=== PATIENT | female | born 1935 | race Caucasian/White ===

== ENCOUNTER 2017-06-26 16:48 | Inpatient (IN) | payer MEDICARE, MEDICAID ==
[~2017-06-26] VITALS: Ht 157.5 cm; Wt 55.0 kg
[2017-06-26 17:08] VITALS: BP 123/59; PULSE 100; RESP 24; TEMP 100.9; O2SAT 95
[2017-06-26] MEDS ORDERED: SODIUM CHLOR 0.9% 1000 ML INJ 800 ML IV ONE (17:17)
[2017-06-26] MEDS ORDERED: cefTRIAXone INJ 2,000 MG in SODIUM CHLORIDE 0.9% INJ 100 ML IV STA (17:17)
[2017-06-26] MEDS ORDERED: SODIUM CHLOR 0.9% 1000 ML INJ 1,000 ML IV ONE (17:17)
[2017-06-26] MEDS ORDERED: AZITHROMYCIN INJ 500 MG in SODIUM CHLOR 0.9% 250 ML INJ 250 ML IV STA (17:17)
[2017-06-26] MEDS ORDERED: ERYTHROMYCIN 0.5% OPTH OINT 3.5 GM TUBO EACH EYE ONE (17:30)
[2017-06-26] MEDS ORDERED: ACETAMINOPHEN 325 MG TAB PO ONE (17:30)
--- NOTE | 2017-06-26 17:55 | RADRPT ---
EXAM DATE/TIME: 06/26/2017 17:39 [facility] COMPARISON: No previous studies available for comparison. INDICATIONS : Fever. Congestion. MEDICAL HISTORY : None. SURGICAL HISTORY : None. ENCOUNTER: Initial ACUITY: 3 days PAIN SCORE: 6/10 LOCATION: Bilateral chest FINDINGS: A single view of the chest demonstrates patent changes in the right middle lobe. Otherwise, the rest of the lung costa are grossly clear. There some mild chronic interstitial changes bilaterally. The h eart size is upper limits of normal. There are no pleural effusions or pulmonary edema. The bony stru ctures are grossly intact. There are no prior studies for comparison.. CONCLUSION: Focal parenchymal changes in the right middle lobe suggestive of pneumonia. Evert Morgan MD on June 26, 2017 at 17:52 Board Certified Radiologist. This report was verified electronically.
[2017-06-26 18:01] LABS: AUTOMATED NEUTROPHIL # 16.6 TH/MM3 (1.8-7.7); BASOPHIL % 0.1 % (0.0-2.0); EOSINOPHIL % 0.1 % (0.0-4.0); HEMATOCRIT 38.8 % (35.0-46.0); HEMO FLAGS DIFF FINAL; LYMPH % 5.7 % (9.0-44.0); LYMPHOCYTE # 1.1 TH/MM3 (1.0-4.8); MEAN CELL VOLUME 89.8 FL (80.0-100.0); MEAN CORPUSCULAR HGB CONC 34.5 % (32.0-36.0); MONO % 6.3 % (0.0-8.0); NEUT % 87.8 % (16.0-70.0); PLATELET COUNT 367 TH/MM3 (150-450); RED BLOOD COUNT 4.31 MIL/MM3 (4.00-5.30); WHITE BLOOD COUNT 18.9 TH/MM3 (4.0-11.0)
[2017-06-26] MEDS ORDERED: FURO1TAB62 PO (18:11)
[2017-06-26] MEDS ORDERED: GLIP10TA6 PO (18:11)
[2017-06-26] MEDS ORDERED: NAME10TA PO (18:11)
[2017-06-26] MEDS ORDERED: D31000CA3 PO (18:11)
[2017-06-26] MEDS ORDERED: METF1000 PO (18:11)
[2017-06-26] MEDS ORDERED: IPRASOL NEB (18:11)
[2017-06-26] MEDS ORDERED: TYLE325T PO (18:11)
[2017-06-26] MEDS ORDERED: LORA-392 PO (18:11)
[2017-06-26] MEDS ORDERED: NIAC250T3 PO (18:11)
[2017-06-26] MEDS ORDERED: ARIC10TA9 PO (18:11)
[2017-06-26] MEDS ORDERED: ZOCO20TA PO (18:11)
[2017-06-26] MEDS ORDERED: PAXI40TA9 PO (18:11)
[2017-06-26] MEDS ORDERED: CLAR500T PO (18:11)
[2017-06-26 18:46] LABS: ANION GAP 11 MEQ/L (5-15); AST (GOT) 31 U/L (15-37); BICARBONATE 24.3 MEQ/L (21.0-32.0); BLOOD UREA NITROGEN 26 MG/DL (7-18); CHLORIDE 105 MEQ/L (98-107); GLOMERULAR FILTRATION RATE 42 ML/MIN (>89); POTASSIUM 3.8 MEQ/L (3.5-5.1); SODIUM (NA) 140 MEQ/L (136-145)
[2017-06-26 18:47] LABS: ALT (GPT) 19 U/L (10-53)
[2017-06-26 18:49] LABS: ALKALINE PHOSPHATASE 95 U/L (45-117); TOTAL BILIRUBIN ADULT 0.5 MG/DL (0.2-1.0)
--- NOTE | 2017-06-26 18:54 | PD ---
HPI Chief Complaint: Fall Time Seen by Provider: 17:03 Travel History International Travel<30 days: No Contact w/Intl Traveler<30days: No Traveled to known affect area: No History of Present Illness HPI Patient's 81-year-old female who arrives by EMS after fall today. Pt was found on the floor. She was found to be tachypneic and to have had a fever of 102.7. Pt reported to be on abx. Coarse breath sounds were observed per EMS. EMS reports the patient was declining in her [facility] over the past two days, missing meals. In the ER the patient denies pain. She denies shortness of breath and fever. PFSH Past Medical History Asthma: Yes Anxiety: Yes Depression: Yes High Cholesterol: Yes Dementia: Yes Diabetes: Yes Patient Takes Glucophage: Yes Triglycerides - High: Yes Influenza Vaccination: Yes Past Surgical History Surgical History: Unable to Obtain Social History Alcohol Use: No Tobacco Use: No Substance Use: No Allergies-Medications (Allergen,Severity, Reaction): Coded Allergies: atorvastatin (Verified Allergy, Unknown, 06/26/17) Reported Meds & Prescriptions Reported Meds & Active Scripts Active Reported Metformin (Metformin HCl) 1,000 Mg Tab 1,000 Mg PO BID Lasix (Furosemide) 20 Mg Tab 20 Mg PO DAILY 1 Days Namenda (Memantine) 10 Mg Tab 10 Mg PO BID Glipizide 10 Mg Tab 10 Mg PO BID Take 30 minutes before a meal Duoneb (Ipratropium-Albuterol Neb) 0.5-2.5 Mg/3 Ml Neb 3 Ml NEB Q6HR 3 Days Clarithromycin 500 Mg Tab 500 Mg PO Q12HR 3 Days Ativan (Lorazepam) 0.5 Mg Tab 0.25 Mg PO DAILY Aricept (Donepezil HCl) 10 Mg Tablet 10 Mg PO HS Plain Niacin (Niacin) 250 Mg Tablet 250 Mg PO DAILY Paxil (Paroxetine HCl) 40 Mg Tablet 40 Mg PO DAILY Tylenol (Acetaminophen) 325 Mg Tab 650 Mg PO Q4H PRN Zocor (Simvastatin) 20 Mg Tab 20 Mg PO DAILY Vitamin D-3 (Cholecalciferol) 1,000 Unit Cap 1,000 Units PO DAILY Tylenol (Acetaminophen) 325 Mg Tab 325 Mg PO Q4H PRN Review of Systems Except as stated in HPI: all other systems reviewed are Neg General / Constitutional: Positive: Fever Respiratory: Positive: Cough Physical Exam Narrative GENERAL: 81-year-old female speaking in sentences mild to moderate distress SKIN: Warm and dry. HEAD: Normocephalic. No obvious traumatic injury. EYES: Pupils equal and round. No scleral icterus. No injection or drainage. ENT: No nasal bleeding or discharge. Mucous membranes pink and moist. NECK: Trachea midline. No JVD. CARDIOVASCULAR:hr 90S. REGULAR. RESPIRATORY: course breath sounds bilaterally GASTROINTESTINAL: Abdomen soft, non-tender, nondistended. Hepatic and splenic margins not palpable. MUSCULOSKELETAL: Extremities without clubbing, cyanosis, or edema. No obvious deformities. NEUROLOGICAL: Awake and alert. No obvious cranial nerve deficits. Motor grossly within normal limits. Five out of 5 muscle strength in the arms and legs. Normal speech. PSYCHIATRIC: Appropriate mood and affect; insight and judgment normal. Data Data Last Documented VS Vital Signs Date Time Temp Pulse Resp B/P (MAP) Pulse Ox O2 Delivery O2 Flow Rate FiO2 06/26/17 19:27 94 18 114/57 (76) 93 Room Air 06/26/17 18:47 2.00 06/26/17 17:08 100.9 VS reviewed Orders Orders Sepsis Workup Initiated (06/26/17 ) Complete Blood Count With Diff (06/26/17 17:17) Comprehensive Metabolic Panel (06/26/17 17:17) Lactic Acid Sepsis Protocol (06/26/17 17:17) Urinalysis - C+S If Indicated (06/26/17 17:17) Blood Culture (06/26/17 17:17) Chest, Single Ap (06/26/17 17:17) Blood Glucose (06/26/17 17:17) Ecg Monitoring (06/26/17 17:17) Iv Access Insert/Monitor (06/26/17 17:17) Oximetry (06/26/17 17:17) Oxygen Administration (06/26/17 17:17) Acetaminophen (Tylenol) (06/26/17 17:30) Ceftriaxone Inj (Rocephin Inj) (06/26/17 17:17) Azithromycin Inj (Zithromax Inj) (06/26/17 17:17) Sodium Chlor 0.9% 1000 Ml Inj (Ns 1000 M (06/26/17 17:17) Sodium Chlor 0.9% 1000 Ml Inj (Ns 1000 M (06/26/17 17:17) Erythromycin 0.5% Opth Oint (Ilotycin 0. (06/26/17 17:30) Admit To Inpatient (06/26/17 ) Vital Signs (Adult) Q4H (06/26/17 19:16) Activity Oob With Assistance (06/26/17 19:16) Bedside Glucose DARREN.CSUGAR (06/26/17 19:16) Diet Heart Healthy (06/27/17 Breakfast) Sodium Chloride 0.9% Flush (Ns Flush) (06/26/17 19:30) Sodium Chloride 0.9% Flush (Ns Flush) (06/26/17 21:00) Acetaminophen (Tylenol) (06/26/17 19:30) Ondansetron Inj (Zofran Inj) (06/26/17 19:30) Basic Metabolic Panel (Bmp) (06/27/17 06:00) Complete Blood Count With Diff (06/27/17 06:00) Resp Oxygen Titus C Titrat 1-4 L (06/26/17 ) Case Management Consult (06/26/17 19:16) Heparin Inj (Heparin Inj) (06/26/17 21:00) Naloxone Inj (Narcan Inj) (06/26/17 19:30) Docusate Sodium-Senna (More-Colace) (06/26/17 21:00) Magnesium Hydroxide Liq (Milk Of Magnesi (06/26/17 19:30) Sennosides (Senokot) (06/26/17 19:30) Bisacodyl Supp (Dulcolax Supp) (06/26/17 19:30) Lactulose Liq (Lactulose Liq) (06/26/17 19:30) Inpatient Certification (06/26/17 ) Furosemide (Lasix) (06/27/17 09:00) Lorazepam (Ativan) (06/27/17 09:00) Memantine (Namenda) (06/26/17 21:00) Donepezil (Aricept) (06/26/17 21:00) Niacin Sr (Slo-Niacin) (06/27/17 09:00) Paroxetine (Paxil) (06/27/17 09:00) Pravastatin (Pravachol) (06/27/17 09:00) Albuterol-Ipratropium Neb (Duoneb Neb) (06/26/17 19:30) Admit Order (Ed Use Only) (06/26/17 ) Labs Laboratory Tests Test 06/26/17 17:20 White Blood Count 18.9 TH/MM3 Red Blood Count 4.31 MIL/MM3 Hemoglobin 13.4 GM/DL Hematocrit 38.8 % Mean Corpuscular Volume 89.8 FL Mean Corpuscular Hemoglobin 31.0 PG Mean Corpuscular Hemoglobin Concent 34.5 % Red Cell Distribution Width 13.0 % Platelet Count 367 TH/MM3 Mean Platelet Volume 7.4 FL Neutrophils (%) (Auto) 87.8 % Lymphocytes (%) (Auto) 5.7 % Monocytes (%) (Auto) 6.3 % Eosinophils (%) (Auto) 0.1 % Basophils (%) (Auto) 0.1 % Neutrophils # (Auto) 16.6 TH/MM3 Lymphocytes # (Auto) 1.1 TH/MM3 Monocytes # (Auto) 1.2 TH/MM3 Eosinophils # (Auto) 0.0 TH/MM3 Basophils # (Auto) 0.0 TH/MM3 CBC Comment DIFF FINAL Differential Comment Blood Urea Nitrogen 26 MG/DL Creatinine 1.22 MG/DL Random Glucose 107 MG/DL Total Protein 7.8 GM/DL Albumin 3.0 GM/DL Calcium Level 8.1 MG/DL Alkaline Phosphatase 95 U/L Aspartate Amino Transf (AST/SGOT) 31 U/L Alanine Aminotransferase (ALT/SGPT) 19 U/L Total Bilirubin 0.5 MG/DL Sodium Level 140 MEQ/L Potassium Level 3.8 MEQ/L Chloride Level 105 MEQ/L Carbon Dioxide Level 24.3 MEQ/L Anion Gap 11 MEQ/L Estimat Glomerular Filtration Rate 42 ML/MIN Lactic Acid Level 1.3 mmol/L [facility] Medical Decision Making Medical Screen Exam Complete: Yes Emergency Medical Condition: Yes Medical Record Reviewed: Yes Differential Diagnosis Sepsis, pna, fall, dementia Narrative Course CBC & BMP Diagram 06/26/17 17:20 Total Protein 7.8, Albumin 3.0 L, Calcium Level 8.1 L, Alkaline Phosphatase 95, Aspartate Amino Transf (AST/SGOT) 31, Alanine Aminotransferase (ALT/SGPT) 19, Total Bilirubin 0.5 LA 1.3 Last Impressions Chest X-Ray 06/26/17 1717 Signed Impressions: Service Date/Time: Monday, June 26, 2017 17:39 - CONCLUSION: Focal parenchymal changes in the right middle lobe suggestive of pneumonia. MD Esteban Hinojosa/Haley started 3L NS transfusion per CMS sepsis protocol mid on 2LNC however pt removes NC admission for sepsis 2/2 pna d/w Dr Reynolds Diagnosis Primary Impression: Sepsis Qualified Codes: A41.9 - Sepsis, unspecified organism Additional Impressions: Pneumonia Qualified Codes: J18.9 - Pneumonia, unspecified organism Fall Qualified Codes: W19.XXXA - Unspecified fall, initial encounter Admitting Information Admitting Physician Requests: Admit Malcolm Wu MD Jun 26, 2017 18:54
[2017-06-26 19:27] VITALS: BP 114/57; PULSE 94; RESP 18; O2SAT 93
[2017-06-26] MEDS ORDERED: RESP: ALBUTEROL 2.5 MG/IPRATROPIUM 0.5 MG NEB (PRN) NEB (19:30)
[2017-06-26] MEDS ORDERED: ACETAMINOPHEN 325 MG TAB PO PRN (19:30)
[2017-06-26] MEDS ORDERED: NALOXONE HCL 0.4 MG/ML AMP IV PUSH PRN (19:30)
[2017-06-26] MEDS ORDERED: SENNOSIDES 8.6 MG TAB PO PRN (19:30)
[2017-06-26] MEDS ORDERED: MAGNESIUM HYDROXIDE SUSP 30 ML CUP PO PRN (19:30)
[2017-06-26] MEDS ORDERED: LACTULOSE SYRUP 20 GM/30 ML CUP PO PRN (19:30)
[2017-06-26] MEDS ORDERED: ONDANSETRON HCL 4 MG/2 ML VIAL IVP PRN (19:30)
[2017-06-26] MEDS ORDERED: SODIUM CHLORIDE 0.9% FLUSH 10 ML FLUSH IV FLUSH PRN (19:30)
[2017-06-26] MEDS ORDERED: BISACODYL 10 MG SUPP RECTAL PRN (19:30)
[2017-06-26 20:00] VITALS: BP 119/58; PULSE 99; RESP 18; TEMP 95.7; O2SAT 91
[2017-06-26 20:08] LABS: BACTERIA, URINE OCC /hpf; BLOOD, URINE SMALL (NEG); COMMENT (UR) CULTURE INDICATED; CULTURE IF INDICATED CULTURE INDICATED; GLUCOSE,URINE NEG (NEG); HYALINE CAST, URINE 3 /lpf (RARE); KETONE, URINE NEG (NEG); MUCUS URINE FEW /lpf (OCC); NITRITE,URINE NEG (NEG); PH, URINE 5.5 (5.0-8.5); SQUAMOUS EPITHELIAL CELL URINE 3 /hpf (0-5); URINE COLOR YELLOW (YELLW/STRAW)
--- NOTE | 2017-06-26 20:23 | RADRPT ---
EXAM DATE/TIME: 06/26/2017 20:07 [facility] COMPARISON: No previous studies available for comparison. INDICATIONS : Trauma, fall. RADIATION DOSE: 32.02 CTDIvol (mGy) ; Patient motion MEDICAL HISTORY : Dementia. diabetes SURGICAL HISTORY : None. ENCOUNTER: Initial ACUITY: 1 day PAIN SCALE: Non-responsive LOCATION: Bilateral head TECHNIQUE: Multiple contiguous axial images were obtained of the head. Using automated exposure control and adj ustment of the mA and/or kV according to patient size, radiation dose was kept as low as reasonably a chievable to obtain optimal diagnostic quality images. DICOM format image data is available electro nically for review and comparison. FINDINGS: CEREBRUM: There is thickening of the posterior right aspect of the falx measuring 4 mm likely related to a smal l subdural hemorrhage in this region. The ventricles and cortical sulci are widened. No evidence of midline shift, mass lesion, or acute infarction. POSTERIOR FOSSA: The cerebellum and brainstem are intact. The 4th ventricle is midline. The cerebellopontine angle i s unremarkable. EXTRACRANIAL: The visualized portion of the orbits is intact. SKULL: The calvaria is intact. No evidence of skull fracture. CONCLUSION: 1. Suspected small 4 mm subdural hemorrhage of the posterior falx without mass effect. 2. Age-related atrophy. Urban De Souza MD on June 26, 2017 at 20:19 Board Certified Radiologist. This report was verified electronically.
[2017-06-26] MEDS ORDERED: SODIUM CHLOR 0.9% 1000 ML INJ 1,000 ML IV SCH (20:30)
--- NOTE | 2017-06-26 20:38 | HHI.HP ---
[facility] Gopi Rebolledo MD Admission Diagnosis Sepsis; PNA Diagnoses: Travel History International Travel<30 Days: No Contact w/Intl Traveler <30 Da: No Traveled to Known Affected Are: No History of Present Illness 81-year-old female with a past medical history significant for dementia, COPD, hyperlipidemia and type 2 diabetes mellitus was brought to the emergency department by EMS after a fall in her residential facility earlier today. The patient was found to be tachypneic with a respiratory rate of 24 and febrile to 102.7. She was hypoxic on arrival to the emergency department, requiring 2 L nasal cannula. Patient denies shortness of breath and fever/ chills. Denies cough. Chest x-ray showed focal parenchymal changes in the right middle lobe suggestive of pneumonia. WBC 18.9. Patient is oriented only to self. Believes it is 1936. Review of Systems Denies fever or chills Denies blurry vision, otorrhea, rhinorrhea Denies sore throat and cough No chest pain, palpitations, shortness of breath No abdominal pain Denies constipation/diarrhea/nausea/vomiting Denies muscle pain/weakness No rashes Past Family Social History Past Medical History dementia, COPD, hyperlipidemia and type 2 diabetes mellitus Past Surgical History (Obtained from medical records review) Sinus surgery with polyp removal 2 Hysterectomy Unspecified diverticulitis surgery Reported Medications Reported Meds & Active Scripts Active Reported Metformin (Metformin HCl) 1,000 Mg Tab 1,000 Mg PO BID Lasix (Furosemide) 20 Mg Tab 20 Mg PO DAILY 1 Days Namenda (Memantine) 10 Mg Tab 10 Mg PO BID Glipizide 10 Mg Tab 10 Mg PO BID Take 30 minutes before a meal Duoneb (Ipratropium-Albuterol Neb) 0.5-2.5 Mg/3 Ml Neb 3 Ml NEB Q6HR 3 Days Clarithromycin 500 Mg Tab 500 Mg PO Q12HR 3 Days Ativan (Lorazepam) 0.5 Mg Tab 0.25 Mg PO DAILY Aricept (Donepezil HCl) 10 Mg Tablet 10 Mg PO HS Plain Niacin (Niacin) 250 Mg Tablet 250 Mg PO DAILY Paxil (Paroxetine HCl) 40 Mg Tablet 40 Mg PO DAILY Tylenol (Acetaminophen) 325 Mg Tab 650 Mg PO Q4H PRN Zocor (Simvastatin) 20 Mg Tab 20 Mg PO DAILY Vitamin D-3 (Cholecalciferol) 1,000 Unit Cap 1,000 Units PO DAILY Tylenol (Acetaminophen) 325 Mg Tab 325 Mg PO Q4H PRN Allergies: Coded Allergies: atorvastatin (Verified Allergy, Unknown, 06/26/17) Family History Unable to obtain secondary to patient's dementia Social History Denies alcohol, tobacco and illicit drugs Physical Exam Vital Signs Vital Signs Date Time Temp Pulse Resp B/P (MAP) Pulse Ox O2 Delivery O2 Flow Rate FiO2 06/26/17 19:27 94 18 114/57 (76) 93 Room Air 06/26/17 18:47 97 Nasal Cannula 2.00 06/26/17 17:08 100.9 100 24 123/59 (80) 95 Nasal Cannula 2.00 Physical Exam GENERAL: female sitting up in bed SKIN: No rashes, ecchymoses or lesions. Cool and dry. HEAD: Atraumatic. Normocephalic. No temporal or scalp tenderness. EYES: Pupils equal round and reactive. Extraocular motions intact. No scleral icterus. No injection or drainage. ENT: Nose without bleeding, purulent drainage or septal hematoma. Throat without erythema, tonsillar hypertrophy or exudate. Uvula midline. Airway patent. NECK: Trachea midline. No JVD or lymphadenopathy. Supple, nontender, no meningeal signs. CARDIOVASCULAR: Regular rate and rhythm without murmurs, gallops, or rubs. RESPIRATORY: Coarse breath sounds bilaterally without wheezes, rales, rhonchi GASTROINTESTINAL: Abdomen soft, non-tender, nondistended. No hepato-splenomegaly , or palpable masses. No guarding. MUSCULOSKELETAL: Extremities without clubbing, cyanosis, or edema. No joint tenderness, effusion, or edema noted. No calf tenderness. NEUROLOGICAL: Awake and alert. Cranial nerves II through XII intact. Motor and sensory grossly within normal limits. Normal speech. Oriented only to self. Laboratory Laboratory Tests Test 06/26/17 17:20 06/26/17 19:40 White Blood Count 18.9 Red Blood Count 4.31 Hemoglobin 13.4 Hematocrit 38.8 Mean Corpuscular Volume 89.8 Mean Corpuscular Hemoglobin 31.0 Mean Corpuscular Hemoglobin Concent 34.5 Red Cell Distribution Width 13.0 Platelet Count 367 Mean Platelet Volume 7.4 Neutrophils (%) (Auto) 87.8 Lymphocytes (%) (Auto) 5.7 Monocytes (%) (Auto) 6.3 Eosinophils (%) (Auto) 0.1 Basophils (%) (Auto) 0.1 Neutrophils # (Auto) 16.6 Lymphocytes # (Auto) 1.1 Monocytes # (Auto) 1.2 Eosinophils # (Auto) 0.0 Basophils # (Auto) 0.0 CBC Comment DIFF FINAL Differential Comment Blood Urea Nitrogen 26 Creatinine 1.22 Random Glucose 107 Total Protein 7.8 Albumin 3.0 Calcium Level 8.1 Alkaline Phosphatase 95 Aspartate Amino Transf (AST/SGOT) 31 Alanine Aminotransferase (ALT/SGPT) 19 Total Bilirubin 0.5 Sodium Level 140 Potassium Level 3.8 Chloride Level 105 Carbon Dioxide Level 24.3 Anion Gap 11 Estimat Glomerular Filtration Rate 42 Lactic Acid Level 1.3 Urine Color YELLOW Urine Turbidity HAZY Urine pH 5.5 Urine Specific [place] 1.013 Urine Protein 30 Urine Glucose (UA) NEG Urine Ketones NEG Urine Occult Blood SMALL Urine Nitrite NEG Urine Bilirubin NEG Urine Urobilinogen LESS THAN 2.0 Urine Leukocyte Esterase LARGE Urine RBC 11 Urine WBC 65 Urine WBC Clumps FEW Urine Squamous Epithelial Cells 3 Urine Bacteria OCC Urine Hyaline Casts 3 Urine Mucus FEW Microscopic Urinalysis Comment CULTURE INDICATED Date/Time Source Procedure Growth Status 06/26/17 17:25 Blood Peripheral Aerobic Blood Culture Pending Received 06/26/17 17:25 Blood Peripheral Anaerobic Blood Culture Pending Received 06/26/17 19:40 Urine Catheterized Urine Urine Culture Pending Received Result Diagram: 06/26/17 1720 06/26/17 1720 Caprini VTE Risk Assessment Caprini VTE Risk Assessment: Mod/High Risk (score >= 2) Caprini Risk Assessment Model Point Value = 1 Point Value = 2 Point Value = 3 Point Value = 5 Age 41-60 Minor surgery BMI > 25 kg/m2 Swollen legs Varicose veins or History of unexplained or recurrent spontaneous Oral contraceptives or hormone replacement Sepsis (< 1 month) Serious lung disease, including pneumonia (< 1 month) Abnormal pulmonary function Acute myocardial infarction Congestive heart failure (< 1 month) History of inflammatory bowel disease Medical patient at bed rest Age 61-74 Arthroscopic surgery Major open surgery (> 45 min) Laparoscopic surgery (> 45 min) Malignancy Confined to bed (> 72 hours) Immobilizing plaster cast Central venous access Age >= 75 History of VTE Family history of VTE Factor V Leiden Prothrombin [id number] Lupus anticoagulant Anticardiolipin antibodies Elevated serum homocysteine Heparin-induced thrombocytopenia Other congenital or acquired thrombophilia Stroke (< 1 month) Elective arthroplasty Hip, pelvis, or leg fracture Acute spinal cord injury (< 1 month) Prophylaxis Regimen Total Risk Factor Score Risk Level Prophylaxis Regimen 0-1 Low Early ambulation 2 Moderate Order ONE of the following: *Sequential Compression Device (SCD) *Heparin 5000 units SQ BID 3-4 Higher Order ONE of the following medications: *Heparin 5000 units SQ TID *Enoxaparin/Lovenox 40 mg SQ daily (WT < 150 kg, CrCl > 30 mL/min) *Enoxaparin/Lovenox 30 mg SQ daily (WT < 150 kg, CrCl > 10-29 mL/min) *Enoxaparin/Lovenox 30 mg SQ BID (WT < 150 kg, CrCl > 30 mL/min) AND/OR *Sequential Compression Device (SCD) 5 or more Highest Order ONE of the following medications: *Heparin 5000 units SQ TID (Preferred with Epidurals) *Enoxaparin/Lovenox 40 mg SQ daily (WT < 150 kg, CrCl > 30 mL/min) *Enoxaparin/Lovenox 30 mg SQ daily (WT < 150 kg, CrCl > 10-29 mL/min) *Enoxaparin/Lovenox 30 mg SQ BID (WT < 150 kg, CrCl > 30 mL/min) AND *Sequential Compression Device (SCD) Assessment and Plan Assessment and Plan Assessment/plan: 1. Community-acquired pneumonia Chest x-ray showed parenchymal changes of the right middle lobe suggestive of pneumonia, images reviewed by wv Leukocytosis, tachypnea and hypoxia Blood cultures pending Rocephin/azithromycin Monitor for signs of sepsis Supplemental oxygen to maintain O2 sats greater than 92% Duo nebs 2. UTI Rocephin as above UA significant for large leukocyte esterase, 65 WBCs Urine culture pending 3. AFUA Creatinine 1.22, no baseline for comparison IVFs 4. Diabetes mellitus Holding home metformin SSI Monitor blood glucose 5. Dementia/hyperlipidemia Continue home medications 6. COPD Oxygen and DuoNebs as above FEN Heart healthy diet Electrolytes: monitor and replete prn NS at 60 cc/hr Heparin Case management consulted to assist with DC planning Case discussed with ER physician at length Physician Certification 2 Midnight Certification Type: Admission for Inpatient Services Order for Inpatient Services The services are ordered in accordance with Medicare regulations or non- Medicare payer requirements, as applicable. In the case of services not specified as inpatient-only, they are appropriately provided as inpatient services in accordance with the 2-midnight benchmark. Estimated LOS (days): 2 2 days is the estimated time the patient will need to remain in the hospital, assuming treatment plan goals are met and no additional complications. Post-Hospital Plan: Not yet determined Roxanne Reynolds MD Jun 26, 2017 20:38
[2017-06-26] MEDS ORDERED: GLUCAGON 1 MG/ML VIAL OTHER PRN (20:45)
[2017-06-26] MEDS ORDERED: DEXTROSE 50% IN WATER 50 ML VIAL(D50) IV PUSH PRN (20:45)
[2017-06-26] MEDS: SODIUM CHLORIDE 0.9% FLUSH 10 ML FLUSH IV FLUSH SCH (21:00)
[2017-06-26] MEDS: INSULIN ASPART SUPPLEMENTAL SCALE SQ SCH (21:00)
[2017-06-26] MEDS: DONEPEZIL HCL 5 MG TAB PO SCH (21:46)
[2017-06-26] MEDS: MEMANTINE HCL 10 MG TAB PO SCH (21:47)
[2017-06-26] MEDS: DOCUSATE SODIUM 50 MG/SENNA 8.6 MG TAB PO SCH (21:47)
[2017-06-26] MEDS: HEPARIN SODIUM - SQ 10,000 UNITS/ML VIAL SQ SCH (21:51)
[2017-06-27] VITALS (7 sets, daily range): BP systolic 106–136; BP diastolic 52–71; PULSE 88–99; RESP 16–20; TEMP 96.1–99.9; O2SAT 92–96
[2017-06-27 07:56] LABS: AUTOMATED NEUTROPHIL # 14.8 TH/MM3 (1.8-7.7); BASOPHIL % 0.2 % (0.0-2.0); EOSINOPHIL % 0.1 % (0.0-4.0); HEMATOCRIT 34.6 % (35.0-46.0); HEMO FLAGS DIFF FINAL; LYMPHOCYTE # 1.8 TH/MM3 (1.0-4.8); MEAN CELL VOLUME 89.7 FL (80.0-100.0); MEAN CORPUSCULAR HEMOGLOBIN 30.2 PG (27.0-34.0); MEAN CORPUSCULAR HGB CONC 33.7 % (32.0-36.0); MONO % 7.8 % (0.0-8.0); NEUT % 81.9 % (16.0-70.0); PLATELET COUNT 356 TH/MM3 (150-450); RED BLOOD COUNT 3.85 MIL/MM3 (4.00-5.30); RED CELL DISTRIBUTION WIDTH 13.3 % (11.6-17.2); WHITE BLOOD COUNT 18.1 TH/MM3 (4.0-11.0)
[2017-06-27] MEDS: INSULIN ASPART SUPPLEMENTAL SCALE SQ SCH ×4 (08:00→22:01)
[2017-06-27] MEDS: SODIUM CHLORIDE 0.9% FLUSH 10 ML FLUSH IV FLUSH SCH ×2 (08:26→22:02)
[2017-06-27] MEDS: FUROSEMIDE 20 MG TAB PO SCH (08:27)
[2017-06-27] MEDS: PARoxetine HCL 20 MG TAB PO SCH (08:27)
[2017-06-27] MEDS: MEMANTINE HCL 10 MG TAB PO SCH ×2 (08:27→22:01)
[2017-06-27] MEDS: PRAVASTATIN SOD 40 MG TAB PO SCH (08:28)
[2017-06-27] MEDS: LORazepam 0.5 MG TAB PO SCH (08:28)
[2017-06-27] MEDS: NIACIN 250 MG CONTROLLED RELEASE TAB PO SCH (08:28)
[2017-06-27] MEDS: DOCUSATE SODIUM 50 MG/SENNA 8.6 MG TAB PO SCH (08:28)
[2017-06-27] MEDS: HEPARIN SODIUM - SQ 10,000 UNITS/ML VIAL SQ SCH (08:29)
[2017-06-27 08:43] LABS: BICARBONATE 26.9 MEQ/L (21.0-32.0); POTASSIUM 3.5 MEQ/L (3.5-5.1)
--- NOTE | 2017-06-27 12:04 | HHI.PR ---
Subjective Remarks Follow-up health care associated pneumonia/UTI 06/27/17-patient seen and examined, currently afebrile, some expiratory wheezes Objective Vitals Vital Signs Date Time Temp Pulse Resp B/P (MAP) Pulse Ox O2 Delivery O2 Flow Rate FiO2 06/27/17 08:00 99.9 94 16 115/56 (75) 93 06/27/17 04:00 96.5 97 17 123/57 (79) 93 06/27/17 02:35 93 21 06/27/17 00:36 21 06/27/17 00:00 96.1 99 17 129/59 (82) 92 06/26/17 21:24 06/26/17 20:00 95.7 99 18 119/58 (78) 91 06/26/17 19:27 94 18 114/57 (76) 93 Room Air 06/26/17 18:47 97 Nasal Cannula 2.00 06/26/17 17:08 100.9 100 24 123/59 (80) 95 Nasal Cannula 2.00 I/O 06/26/17 06/26/17 06/26/17 06/27/17 06/27/17 06/27/17 07:00 15:00 23:00 07:00 15:00 23:00 Intake Total 2350 ml 240 ml Balance 2350 ml 240 ml Intake Oral 240 ml IV Total 2350 ml # Voids 3 3 Result Diagram: 06/27/17 0647 06/27/17 0647 Imaging Last Impressions Head CT 06/26/17 194 Signed Impressions: Service Date/Time: Monday, June 26, 2017 20:07 - CONCLUSION: 1. Suspected small 4 mm subdural hemorrhage of the posterior falx without mass effect. 2. Age-related atrophy. Urban De Souza MD Chest X-Ray 06/26/17 7027 Signed Impressions: Service Date/Time: Monday, June 26, 2017 17:39 - CONCLUSION: Focal parenchymal changes in the right middle lobe suggestive of pneumonia. Evert Morgan MD Objective Remarks GENERAL: NAD SKIN: Warm and dry. HEAD: Normocephalic. EYES: No scleral icterus. No injection or drainage. NECK: Supple, trachea midline. No JVD or lymphadenopathy. CARDIOVASCULAR: Regular rate and rhythm without murmurs, gallops, or rubs. RESPIRATORY: Breath sounds equal bilaterally. No accessory muscle use.+[place]ez[place] GASTROINTESTINAL: Abdomen soft, non-tender, nondistended. MUSCULOSKELETAL: No cyanosis, or edema. BACK: Nontender without obvious deformity. No CVA tenderness. A/P Problem List: (1) Sepsis ICD Code: A41.9 - Sepsis, unspecified organism Status: Acute (2) HCAP (healthcare-associated pneumonia) ICD Code: J18.9 - Pneumonia, unspecified organism (3) Dementia ICD Code: F03.90 - Unspecified dementia without behavioral disturbance (4) COPD with exacerbation ICD Code: J44.1 - Chronic obstructive pulmonary disease with (acute) exacerbation (5) UTI (urinary tract infection) ICD Code: N39.0 - Urinary tract infection, site not specified Assessment and Plan 81-year-old female with Sepsis: Secondary to HCAP and UTI Currently on Rocephin and cefepime pending culture report Healthcare associated pneumonia Currently on Rocephin and cefepime pending culture report Maintain oxygen saturation above 92%; DuoNeb when necessary HLIV Urinary tract infection Continue with Rocephin pending urine culture Acute renal failure Resolved with IV fluid hydration HLIV Diabetes mellitus Continue Holding home metformin; currently on SSI Dementia/hyperlipidemia Continue home medications COPD exacerbation Start low-dose steroid, DuoNeb scheduled + when necessary, LABA, Mucinex and continue antibiotics Oxygen and DuoNebs as above DVT prophylaxis Problem Qualifiers (1) Sepsis: Qualified Codes: A41.9 - Sepsis, unspecified organism Zane Rivers MD Jun 27, 2017 12:04
[2017-06-27] MEDS ORDERED: PILL SPLITTER OTHER PRN (13:30)
[2017-06-27] MEDS: predniSONE 20 MG TAB PO SCH (13:37)
[2017-06-27] MEDS: cefTRIAXone INJ 1,000 MG in SODIUM CHLORIDE 0.9% INJ 100 ML IV SCH (16:15)
--- NOTE | 2017-06-27 17:14 | HHI.PR ---
Addendum to Inpatient Note Addendum Reason: Additional Documentation Additional Information Patient with SBH on CT Head Consult Neurosurgery Zane Rivers MD Jun 27, 2017 17:14
[2017-06-27] MEDS: AZITHROMYCIN 250 MG TAB PO SCH (18:39)
[2017-06-27] MEDS: RESP: ALBUTEROL 2.5 MG/IPRATROPIUM 0.5 MG NEB (SCH) NEB (20:43)
[2017-06-27] MEDS: guaiFENesin E.R. 600 MG TAB PO SCH (22:01)
[2017-06-27] MEDS: DONEPEZIL HCL 5 MG TAB PO SCH (22:01)
[2017-06-27] MEDS: BUDESONIDE-FORMOTEROL 160/4.5 MCG INHALER INH SCH (22:05)
[2017-06-28] VITALS (8 sets, daily range): BP systolic 101–152; BP diastolic 58–71; PULSE 86–98; RESP 16–20; TEMP 97.8–99.6; O2SAT 90–95
[2017-06-28] MEDS: INSULIN ASPART SUPPLEMENTAL SCALE SQ SCH ×4 (08:00→20:57)
[2017-06-28] MEDS: RESP: ALBUTEROL 2.5 MG/IPRATROPIUM 0.5 MG NEB (SCH) NEB ×3 (08:14→19:41)
[2017-06-28] MEDS: BUDESONIDE-FORMOTEROL 160/4.5 MCG INHALER INH SCH ×2 (08:43→20:55)
[2017-06-28] MEDS: SODIUM CHLORIDE 0.9% FLUSH 10 ML FLUSH IV FLUSH SCH ×2 (08:44→20:55)
[2017-06-28] MEDS: guaiFENesin E.R. 600 MG TAB PO SCH ×2 (08:45→20:55)
[2017-06-28] MEDS: LORazepam 0.5 MG TAB PO SCH (08:46)
[2017-06-28] MEDS: FUROSEMIDE 20 MG TAB PO SCH (08:46)
[2017-06-28] MEDS: MEMANTINE HCL 10 MG TAB PO SCH ×2 (08:47→20:55)
[2017-06-28] MEDS: NIACIN 250 MG CONTROLLED RELEASE TAB PO SCH (08:47)
[2017-06-28] MEDS: PARoxetine HCL 20 MG TAB PO SCH (08:47)
[2017-06-28] MEDS: PRAVASTATIN SOD 40 MG TAB PO SCH (08:47)
[2017-06-28] MEDS: predniSONE 20 MG TAB PO SCH (08:47)
--- NOTE | 2017-06-28 10:02 | HHI.PR ---
Subjective Remarks Follow-up health care associated pneumonia/UTI and subdural hematoma 06/27/17-patient seen and examined, currently afebrile, some expiratory wheezes 06/28/17-patient seen and examined, appeared calm and collected. Alert and oriented to self and patient having a conversation in both French and [place]. Being fed by a [facility]. Objective Vitals Vital Signs Date Time Temp Pulse Resp B/P (MAP) Pulse Ox O2 Delivery O2 Flow Rate FiO2 06/28/17 08:15 90 21 06/28/17 08:00 98.0 87 16 123/58 (79) 92 06/28/17 04:00 97.8 87 20 133/66 (88) 90 06/27/17 20:00 88 06/27/17 20:00 97.5 88 20 136/71 (92) 96 06/27/17 16:00 98.3 91 16 126/61 (82) 94 06/27/17 12:00 97.5 91 16 106/52 (70) 93 I/O 06/27/17 06/27/17 06/27/17 06/28/17 06/28/17 06/28/17 07:00 15:00 23:00 07:00 15:00 23:00 Intake Total 240 ml 400 ml Balance 240 ml 400 ml Intake Oral 240 ml 300 ml IV Total 100 ml # Voids 3 2 # Bowel Movements 0 Result Diagram: 06/27/17 0647 06/27/17 0647 Objective Remarks GENERAL: NAD with upper extremity restraints SKIN: Warm and dry. HEAD: Normocephalic. EYES: No scleral icterus. No injection or drainage. NECK: Supple, trachea midline. No JVD or lymphadenopathy. CARDIOVASCULAR: Regular rate and rhythm without murmurs, gallops, or rubs. RESPIRATORY: Breath sounds equal bilaterally. No accessory muscle use. GASTROINTESTINAL: Abdomen soft, non-tender, nondistended. MUSCULOSKELETAL: No cyanosis, or edema. BACK: Nontender without obvious deformity. No CVA tenderness. A/P Problem List: (1) Sepsis ICD Code: A41.9 - Sepsis, unspecified organism Status: Acute (2) HCAP (healthcare-associated pneumonia) ICD Code: J18.9 - Pneumonia, unspecified organism (3) Dementia ICD Code: F03.90 - Unspecified dementia without behavioral disturbance (4) COPD with exacerbation ICD Code: J44.1 - Chronic obstructive pulmonary disease with (acute) exacerbation (5) UTI (urinary tract infection) ICD Code: N39.0 - Urinary tract infection, site not specified (6) SDH (subdural hematoma) ICD Code: I62.00 - Nontraumatic subdural hemorrhage, unspecified Assessment and Plan 81-year-old female with Sepsis: Secondary to HCAP and UTI Currently on Rocephin and cefepime pending culture report Healthcare associated pneumonia Currently on Rocephin and cefepime pending culture report Maintain oxygen saturation above 92%; DuoNeb when necessary HLIV Urinary tract infection Continue with Rocephin pending urine culture Urine culture negative, therefore will discontinue antibiotics Acute renal failure Resolved with IV fluid hydration HLIV Diabetes mellitus Continue Holding home metformin; currently on SSI Dementia/hyperlipidemia Continue home medications COPD exacerbation 2 new low-dose steroid, DuoNeb scheduled + when necessary, LABA, Mucinex and continue antibiotics Oxygen and DuoNebs as above Subdural hematoma CT head noted and review Neurosurgery consultation pending Agitation Now resolved, will discontinue upper extremity restrain DVT prophylaxis Problem Qualifiers (1) Sepsis: Qualified Codes: A41.9 - Sepsis, unspecified organism Zane Rivers MD Jun 28, 2017 10:02
[2017-06-28 10:59] LABS: AUTOMATED NEUTROPHIL # 12.9 TH/MM3 (1.8-7.7); BASOPHIL # 0.1 TH/MM3 (0-0.2); BASOPHIL % 0.3 % (0.0-2.0); EOSINOPHIL % 0.3 % (0.0-4.0); HEMATOCRIT 35.8 % (35.0-46.0); LYMPH % 13.2 % (9.0-44.0); LYMPHOCYTE # 2.2 TH/MM3 (1.0-4.8); MEAN CELL VOLUME 88.6 FL (80.0-100.0); MEAN CORPUSCULAR HEMOGLOBIN 29.8 PG (27.0-34.0); MEAN CORPUSCULAR HGB CONC 33.7 % (32.0-36.0); NEUT % 78.2 % (16.0-70.0); PLATELET COUNT 409 TH/MM3 (150-450); RED BLOOD COUNT 4.04 MIL/MM3 (4.00-5.30); WHITE BLOOD COUNT 16.5 TH/MM3 (4.0-11.0)
--- NOTE | 2017-06-28 11:05 | PD.CONS ---
HPI Service neurosurgery Consult Requested By Dr Rivers Reason for Consult Intracranial bleed, consideration for surgery Primary Care Physician Gopi Rebolledo MD History of Present Illness This is a 81-year-old female with a history of dementia, COPD, hyperlipidemia and type 2 diabetes mellitus was brought to the emergency department by EMS after a fall in her group home facility. Apparently she was found to be tachypneic with a respiratory rate of 24 and febrile to 102.7. She was hypoxic on arrival to the emergency department, requiring 2 L nasal cannula. She denies shortness of breath and fever/chills. Denies cough. Chest x-ray showed focal parenchymal changes in the right middle lobe suggestive of pneumonia. WBC 18.9. Patient is oriented only to self as her baseline. CT of the brain show a small area of intracranial bleed. Neurosurgical consultation was requested Physical Exam Physical Exam Vital Signs Vital Signs Date Time Temp Pulse Resp B/P (MAP) Pulse Ox O2 Delivery O2 Flow Rate FiO2 06/26/17 19:27 94 18 114/57 (76) 93 Room Air 06/26/17 18:47 97 Nasal Cannula 2.00 06/26/17 17:08 100.9 100 24 123/59 (80) 95 Nasal Cannula 2.00 Physical Exam GENERAL: female sitting up in bed SKIN: No rashes, ecchymoses or lesions. Cool and dry. HEAD: Atraumatic. Normocephalic. No temporal or scalp tenderness. EYES: Pupils equal round and reactive. Extraocular motions intact. No scleral icterus. No injection or drainage. ENT: Nose without bleeding, purulent drainage or septal hematoma. Throat without erythema, tonsillar hypertrophy or exudate. Uvula midline. Airway patent. NECK: Trachea midline. No JVD or lymphadenopathy. Supple, nontender, no meningeal signs. CARDIOVASCULAR: Regular rate and rhythm without murmurs, gallops, or rubs. RESPIRATORY: Coarse breath sounds bilaterally without wheezes, rales, rhonchi GASTROINTESTINAL: Abdomen soft, non-tender, nondistended. No hepato-splenomegaly , or palpable masses. No guarding. MUSCULOSKELETAL: Extremities without clubbing, cyanosis, or edema. No joint tenderness, effusion, or edema noted. No calf tenderness. NEUROLOGICAL: Awake and alert. Cranial nerves II through XII intact. Motor and sensory grossly within normal limits. Normal speech. Oriented only to self. Laboratory Laboratory Tests Test 06/26/17 17:20 06/26/17 19:40 White Blood Count 18.9 Red Blood Count 4.31 Hemoglobin 13.4 Hematocrit 38.8 Mean Corpuscular Volume 89.8 Mean Corpuscular Hemoglobin 31.0 Mean Corpuscular Hemoglobin Concent 34.5 Red Cell Distribution Width 13.0 Platelet Count 367 Mean Platelet Volume 7.4 Neutrophils (%) (Auto) 87.8 Lymphocytes (%) (Auto) 5.7 Monocytes (%) (Auto) 6.3 Eosinophils (%) (Auto) 0.1 Basophils (%) (Auto) 0.1 Neutrophils # (Auto) 16.6 Lymphocytes # (Auto) 1.1 Monocytes # (Auto) 1.2 Eosinophils # (Auto) 0.0 Basophils # (Auto) 0.0 CBC Comment DIFF FINAL Differential Comment Blood Urea Nitrogen 26 Creatinine 1.22 Random Glucose 107 Total Protein 7.8 Albumin 3.0 Calcium Level 8.1 Alkaline Phosphatase 95 Aspartate Amino Transf (AST/SGOT) 31 Alanine Aminotransferase (ALT/SGPT) 19 Total Bilirubin 0.5 Sodium Level 140 Potassium Level 3.8 Chloride Level 105 Carbon Dioxide Level 24.3 Anion Gap 11 Estimat Glomerular Filtration Rate 42 Lactic Acid Level 1.3 Urine Color YELLOW Urine Turbidity HAZY Urine pH 5.5 Urine Specific Moran 1.013 Urine Protein 30 Urine Glucose (UA) NEG Urine Ketones NEG Urine Occult Blood SMALL Urine Nitrite NEG Urine Bilirubin NEG Urine Urobilinogen LESS THAN 2.0 Urine Leukocyte Esterase LARGE Urine RBC 11 Urine WBC 65 Urine WBC Clumps FEW Urine Squamous Epithelial Cells 3 Urine Bacteria OCC Urine Hyaline Casts 3 Urine Mucus FEW Microscopic Urinalysis Comment CULTURE INDICATED Date/Time Source Procedure Growth Status 06/26/17 17:25 Blood Peripheral Aerobic Blood Culture Pending Received 06/26/17 17:25 Blood Peripheral Anaerobic Blood Culture Pending Received 06/26/17 19:40 Urine Catheterized Urine Urine Culture Pending Received Result Diagram: 06/26/17 1720 06/26/17 1720 Septic Shock Reassessment Caprini VTE Risk Assessment Caprini VTE Risk Assessment Caprini VTE Risk Assessment: Mod/High Risk (score >= 2) Caprini Risk Assessment Model Point Value = 1 Point Value = 2 Point Value = 3 Point Value = 5 Age 41-60 Minor surgery BMI > 25 kg/m2 Swollen legs Varicose veins or History of unexplained or recurrent spontaneous Oral contraceptives or hormone replacement Sepsis (< 1 month) Serious lung disease, including pneumonia (< 1 month) Abnormal pulmonary function Acute myocardial infarction Congestive heart failure (< 1 month) History of inflammatory bowel disease Medical patient at bed rest Age 61-74 Arthroscopic surgery Major open surgery (> 45 min) Laparoscopic surgery (> 45 min) Malignancy Confined to bed (> 72 hours) Immobilizing plaster cast Central venous access Age >= 75 History of VTE Family history of VTE Factor V Leiden Prothrombin [id number] Lupus anticoagulant Anticardiolipin antibodies Elevated serum homocysteine Heparin-induced thrombocytopenia Other congenital or acquired thrombophilia Stroke (< 1 month) Elective arthroplasty Hip, pelvis, or leg fracture Acute spinal cord injury (< 1 month) Prophylaxis Regimen Total Risk Factor Score Risk Level Prophylaxis Regimen 0-1 Low Early ambulation 2 Moderate Order ONE of the following: *Sequential Compression Device (SCD) *Heparin 5000 units SQ BID 3-4 Higher Order ONE of the following medications: *Heparin 5000 units SQ TID *Enoxaparin/Lovenox 40 mg SQ daily (WT < 150 kg, CrCl > 30 mL/min) *Enoxaparin/Lovenox 30 mg SQ daily (WT < 150 kg, CrCl > 10-29 mL/min) *Enoxaparin/Lovenox 30 mg SQ BID (WT < 150 kg, CrCl > 30 mL/min) AND/OR *Sequential Compression Device (SCD) 5 or more Highest Order ONE of the following medications: *Heparin 5000 units SQ TID (Preferred with Epidurals) *Enoxaparin/Lovenox 40 mg SQ daily (WT < 150 kg, CrCl > 30 mL/min) *Enoxaparin/Lovenox 30 mg SQ daily (WT < 150 kg, CrCl > 10-29 mL/min) *Enoxaparin/Lovenox 30 mg SQ BID (WT < 150 kg, CrCl > 30 mL/min) AND *Sequential Compression Device (SCD) Assessment and Plan Assessment and Plan Assessment and Plan Assessment/plan: 1. Community-acquired pneumonia Chest x-ray showed parenchymal changes of the right middle lobe suggestive of pneumonia, images reviewed by me Leukocytosis, tachypnea and hypoxia Blood cultures pending Rocephin/azithromycin Monitor for signs of sepsis Supplemental oxygen to maintain O2 sats greater than 92% Duo nebs 2. UTI Rocephin as above UA significant for large leukocyte esterase, 65 WBCs Urine culture pending 3. AFUA Creatinine 1.22, no baseline for comparison IVFs 4. Diabetes mellitus Holding home metformin SSI Monitor blood glucose 5. Dementia/hyperlipidemia Continue home medications 6. COPD Oxygen and DuoNebs as above FEN Heart healthy diet Electrolytes: monitor and replete prn NS at 60 cc/hr Heparin Review of Systems Constitutional: DENIES: Diaphoretic episodes, Fatigue, Fever, Weight gain, Weight loss, Chills, Dizziness, Change in appetite, Night Sweats Endocrine: DENIES: Abnorml menstrual pattern, Heat/cold intolerance, Polydipsia , Polyuria, Polyphagia Eyes: DENIES: Blurred vision, Diplopia, Eye inflammation, Eye pain, Vision loss , Photosensitivity, Double Vision Ears, nose, mouth, throat: DENIES: Tinnitus, Hearing loss, Vertigo, Nasal discharge, Oral lesions, Throat pain, Hoarseness, Ear Pain, Running Nose, Epistaxis, Sinus Pain, Toothache, Odynophagia Respiratory: COMPLAINS OF: Cough, Shortness of breath, DENIES: Apneas, Snoring , Wheezing, Hemoptysis, Sputum production Cardiovascular: DENIES: Chest pain, Palpitations, Syncope, Dyspnea on Exertion , PND, Lower Extremity Edema, Orthopnea, Claudication Gastrointestinal: DENIES: Abdominal pain, Black stools, Bloody stools, Constipation, Diarrhea, Nausea, Vomiting, Difficulty Swallowing, Anorexia Genitourinary: DENIES: Abnormal vaginal bleeding, Dysmenorrhea, Dyspareunia, Sexual dysfunction, Urinary frequency, Urinary incontinence, Urgency, Hematuria , Dysuria, Nocturia, Vaginal discharge Musculoskeletal: DENIES: Joint pain, Muscle aches, Stiffness, Joint Swelling, Back pain, Neck pain Integumentary: DENIES: Abnormal pigmentation, Pruritus, Rash, Nail changes, Breast masses, Breast skin changes, Nipple discharge Hematologic/lymphatic: DENIES: Bruising, Lymphadenopathy Immunologic/allergic: DENIES: Eczema, Urticaria Neurologic: COMPLAINS OF: Headache, DENIES: Abnormal gait, Localized weakness, Paresthesias, Seizures, Speech Problems, Tremor, Poor Balance Psychiatric: COMPLAINS OF: Anxiety, Confusion, Hallucinations Past Family Social History Allergies: Coded Allergies: atorvastatin (Verified Allergy, Unknown, 06/26/17) Past Medical History dementia, COPD, hyperlipidemia and type 2 diabetes mellitus Past Surgical History Sinus surgery with polyp removal 2 Hysterectomy Unspecified diverticulitis surgery Reported Medications Metformin (Metformin HCl) 1,000 Mg Tab 1,000 Mg PO BID Lasix (Furosemide) 20 Mg Tab 20 Mg PO DAILY 1 Days Namenda (Memantine) 10 Mg Tab 10 Mg PO BID Glipizide 10 Mg Tab 10 Mg PO BID Take 30 minutes before a meal Duoneb (Ipratropium-Albuterol Neb) 0.5-2.5 Mg/3 Ml Neb 3 Ml NEB Q6HR 3 Days Clarithromycin 500 Mg Tab 500 Mg PO Q12HR 3 Days Ativan (Lorazepam) 0.5 Mg Tab 0.25 Mg PO DAILY Aricept (Donepezil HCl) 10 Mg Tablet 10 Mg PO HS Plain Niacin (Niacin) 250 Mg Tablet 250 Mg PO DAILY Paxil (Paroxetine HCl) 40 Mg Tablet 40 Mg PO DAILY Tylenol (Acetaminophen) 325 Mg Tab 650 Mg PO Q4H PRN Zocor (Simvastatin) 20 Mg Tab 20 Mg PO DAILY Vitamin D-3 (Cholecalciferol) 1,000 Unit Cap 1,000 Units PO DAILY Tylenol (Acetaminophen) 325 Mg Tab 325 Mg PO Q4H PRN Active Ordered Medications Current Medications Acetaminophen (Tylenol) 650 mg ONCE ONCE PO Last administered on 06/26/17 18 :17; Start 06/26/17 at 17:30; Stop 06/26/17 at 17:31; Status DC Ceftriaxone Sodium 2000 mg/ Sodium Chloride 100 ml @ 200 mls/hr ONCE STAT IV Last administered on 06/26/17 17:54; Start 06/26/17 at 17:17; Stop 06/26/17 at 17:46; Status DC Azithromycin 500 mg/Sodium Chloride 250 ml @ 250 mls/hr ONCE STAT IV Last administered on 06/26/17 18:17; Start 06/26/17 at 17:17; Stop 06/26/17 at 18 :16; Status DC Sodium Chloride 1,000 ml @ 1,000 mls/hr Q1H ONCE IV Last administered on 06/26 18:17; Start 06/26/17 at 17:17; Stop 06/26/17 at 18:16; Status DC Sodium Chloride 800 ml @ 1,000 mls/hr Q48M ONCE IV Last administered on 18:46; Start 06/26/17 at 17:17; Stop 06/26/17 at 18:04; Status DC Erythromycin (Ilotycin 0.5% Opth Oint) 1 applic ONCE ONCE EACH EYE Last administered on 06/26/17 18:46; Start 06/26/17 at 17:30; Stop 06/26/17 at 17 :31; Status DC Sodium Chloride (NS Flush) 2 ml UNSCH PRN IV FLUSH FLUSH AFTER USING IV ACCESS ; Start 06/26/17 at 19:30 Sodium Chloride (NS Flush) 2 ml BID IV FLUSH Last administered on 06/28/17 08 :44; Start 06/26/17 at 21:00 Acetaminophen (Tylenol) 650 mg Q4H PRN PO TEMP > 100.4; Start 06/26/17 at 19: 30 Ondansetron HCl (Zofran Inj) 4 mg Q6H PRN IVP NAUSEA OR VOMITING; Start at 19:30 Heparin Sodium (Porcine) (Heparin Inj) 5,000 units Q12HR SQ Last administered on 06/27/17 08:29; Start 06/26/17 at 21:00; Stop 06/27/17 at 17:13; Status DC Naloxone HCl (Narcan Inj) 0.4 mg UNSCH PRN IV PUSH SEE LABEL COMMENTS; Start 06/26/17 at 19:30 Senna/Docusate Sodium (More-Colace) 1 tab BID PO Last administered on 08:28; Start 06/26/17 at 21:00; Stop 06/27/17 at 11:58; Status DC Magnesium Hydroxide (Milk Of Magnesia Liq) 30 ml Q12H PRN PO Mild constipation ; Start 06/26/17 at 19:30 Sennosides (Senokot) 17.2 mg Q12H PRN PO Moderate constipation; Start at 19:30; Stop 06/27/17 at 11:58; Status DC Bisacodyl (Dulcolax Supp) 10 mg DAILY PRN RECTAL SEVERE CONSITIPATION; Start 06/26/17 at 19:30; Stop 06/27/17 at 11:58; Status DC Lactulose (Lactulose Liq) 30 ml DAILY PRN PO SEVERE CONSITIPATION; Start 06/26 at 19:30; Stop 06/27/17 at 11:58; Status DC Furosemide (Lasix) 20 mg DAILY PO Last administered on 06/28/17 08:46; Start 06/27/17 at 09:00 Lorazepam (Ativan) 0.25 mg DAILY PO Last administered on 06/28/17 08:46; Start 06/27/17 at 09:00 Memantine (Namenda) 10 mg BID PO Last administered on 06/28/17 08:47; Start 06/26/17 at 21:00 Donepezil HCl (Aricept) 10 mg HS PO Last administered on 06/27/17 22:01; Start 06/26/17 at 21:00 Niacin (Slo-Niacin) 250 mg DAILY PO Last administered on 06/28/17 08:47; Start 06/27/17 at 09:00 Paroxetine HCl (Paxil) 40 mg DAILY PO Last administered on 06/28/17 08:47; Start 06/27/17 at 09:00 Pravastatin Sodium (Pravachol) 40 mg DAILY PO Last administered on 06/28/17 08:47; Start 06/27/17 at 09:00 Albuterol/ Ipratropium (Duoneb Neb) 1 ampule Q4HR NEB PRN NEB SOB/Wheezing Last administered on 06/27/17 02:35; Start 06/26/17 at 19:30 Sodium Chloride 1,000 ml @ 60 mls/hr [id number] IV Last administered on 20:30; Start 06/26/17 at 20:30; Stop 06/27/17 at 11:57; Status DC Dextrose (D50w (Vial) Inj) 50 ml UNSCH PRN IV PUSH HYPOGLYCEMIA-SEE COMMENTS; Start 06/26/17 at 20:45 Glucagon (Glucagon Inj) 1 mg UNSCH PRN OTHER HYPOGLYCEMIA-SEE COMMENTS; Start 06/26/17 at 20:45 Insulin Aspart (NovoLOG SUPPLEMENTAL SCALE) 1 ACHS SLIDING SCALE SQ Last administered on 12/12/17at 13:51; Start 06/26/17 at 21:00 Azithromycin (Zithromax) 500 mg DAILY@1800 PO Last administered on 06/27/17 18:39; Start 06/27/17 at 18:00 Ceftriaxone Sodium 1000 mg/ Sodium Chloride 100 ml @ 200 mls/hr Q24H IV Last administered on 06/27/17 16:15; Start 06/27/17 at 17:00 Budesonide/ Formoterol Fumarate (Symbicort 160-4.5 Mcg Inh) 2 puff Q12HR INH Last administered on 06/28/17 08:43; Start 06/27/17 at 21:00 Prednisone (Deltasone) 20 mg DAILY PO Last administered on 06/28/17 08:47; Start 06/27/17 at 12:15 Albuterol/ Ipratropium (Duoneb Neb) 1 ampule Q6HR WHILE AWAKE NEB NEB Last administered on 06/28/17 14:23; Start 06/27/17 at 14:00 Guaifenesin (Mucinex Er) 600 mg BID PO Last administered on 06/28/17 08:45; Start 06/27/17 at 21:00 Miscellaneous (Pill Splitter) 1 ea UNSCH PRN OTHER SEE LABEL COMMENTS; Start 06/27/17 at 13:30 Family History Unable to obtain secondary to patient's dementia Social History Denies alcohol, tobacco and illicit drugs Physical Exam Vital Signs Vital Signs Date Time Temp Pulse Resp B/P (MAP) Pulse Ox O2 Delivery O2 Flow Rate FiO2 06/28/17 08:15 90 21 06/28/17 08:00 98.0 87 16 123/58 (79) 92 06/28/17 04:00 97.8 87 20 133/66 (88) 90 06/27/17 20:00 88 06/27/17 20:00 97.5 88 20 136/71 (92) 96 06/27/17 16:00 98.3 91 16 126/61 (82) 94 06/27/17 12:00 97.5 91 16 106/52 (70) 93 Physical Exam The patient is alert, confused, oriented to self. Cranial nerve examination demonstrates the pupils to be equal, round, and reactive to light. Extra-ocular movements are intact with normal convergence. Facial motor function appears normal and symmetrical. Face sensation, hearing, visual costa, and olfaction can not be assessed properly due to the patients condition. The patient has an intact corneal reflex and a gag reflex. Sternocleidomastoid and trapezius have normal and symmetrical strength. Other cranial nerves are intact. Neck is soft and supple. Cervical spine has a decreased range of motion of the cervical spine without pain. There is no tenderness to palpation to the spinous processes or paraspinal muscles. Muscle testing reveals normal bulk and tone overall without rigidity, spasticity , fasciculations, or atrophy. Muscle strength is 5/5 in all muscle groups of both upper and lower extremities. Deep tendon reflexes are 1+ and symmetrical in the biceps, triceps, and brachioradialis, bilaterally, in the upper extremities. In the lower extremities , the patellar and Achilles are 1+, bilaterally. There is a bilateral plantar flexion response. Hoffmanns sign is negative. There is no clonus or other abnormal reflexes noted. Cerebellar examination is limited due to the patient condition, but no obvious deficits are noted. Laboratory Laboratory Tests Test 06/28/17 09:58 Date/Time Source Procedure Growth Status 06/26/17 17:25 Blood Peripheral Aerobic Blood Culture - Preliminary NO GROWTH IN 1 DAY Resulted 06/26/17 17:25 Blood Peripheral Anaerobic Blood Culture - Preliminary NO GROWTH IN 1 DAY Resulted 06/26/17 19:40 Urine Catheterized Urine Urine Culture - Final 10-50,000 CFU/ML MIXED GRAM POSITIVE ... Complete Result Diagram: 06/27/17 0647 06/27/17 0647 Imaging Current Medications Acetaminophen (Tylenol) 650 mg ONCE ONCE PO Last administered on 06/26/17 18 :17; Start 06/26/17 at 17:30; Stop 06/26/17 at 17:31; Status DC Ceftriaxone Sodium 2000 mg/ Sodium Chloride 100 ml @ 200 mls/hr ONCE STAT IV Last administered on 06/26/17 17:54; Start 06/26/17 at 17:17; Stop 06/26/17 at 17:46; Status DC Azithromycin 500 mg/Sodium Chloride 250 ml @ 250 mls/hr ONCE STAT IV Last administered on 06/26/17 18:17; Start 06/26/17 at 17:17; Stop 06/26/17 at 18 :16; Status DC Sodium Chloride 1,000 ml @ 1,000 mls/hr Q1H ONCE IV Last administered on 06/26 18:17; Start 06/26/17 at 17:17; Stop 06/26/17 at 18:16; Status DC Sodium Chloride 800 ml @ 1,000 mls/hr Q48M ONCE IV Last administered on 18:46; Start 06/26/17 at 17:17; Stop 06/26/17 at 18:04; Status DC Erythromycin (Ilotycin 0.5% Opth Oint) 1 applic ONCE ONCE EACH EYE Last administered on 06/26/17 18:46; Start 06/26/17 at 17:30; Stop 06/26/17 at 17 :31; Status DC Sodium Chloride (NS Flush) 2 ml UNSCH PRN IV FLUSH FLUSH AFTER USING IV ACCESS ; Start 06/26/17 at 19:30 Sodium Chloride (NS Flush) 2 ml BID IV FLUSH Last administered on 06/28/17 08 :44; Start 06/26/17 at 21:00 Acetaminophen (Tylenol) 650 mg Q4H PRN PO TEMP > 100.4; Start 06/26/17 at 19: 30 Ondansetron HCl (Zofran Inj) 4 mg Q6H PRN IVP NAUSEA OR VOMITING; Start at 19:30 Heparin Sodium (Porcine) (Heparin Inj) 5,000 units Q12HR SQ Last administered on 06/27/17 08:29; Start 06/26/17 at 21:00; Stop 06/27/17 at 17:13; Status DC Naloxone HCl (Narcan Inj) 0.4 mg UNSCH PRN IV PUSH SEE LABEL COMMENTS; Start 06/26/17 at 19:30 Senna/Docusate Sodium (More-Colace) 1 tab BID PO Last administered on 08:28; Start 06/26/17 at 21:00; Stop 06/27/17 at 11:58; Status DC Magnesium Hydroxide (Milk Of Magnesia Liq) 30 ml Q12H PRN PO Mild constipation ; Start 06/26/17 at 19:30 Sennosides (Senokot) 17.2 mg Q12H PRN PO Moderate constipation; Start at 19:30; Stop 06/27/17 at 11:58; Status DC Bisacodyl (Dulcolax Supp) 10 mg DAILY PRN RECTAL SEVERE CONSITIPATION; Start 06/26/17 at 19:30; Stop 06/27/17 at 11:58; Status DC Lactulose (Lactulose Liq) 30 ml DAILY PRN PO SEVERE CONSITIPATION; Start 06/26 at 19:30; Stop 06/27/17 at 11:58; Status DC Furosemide (Lasix) 20 mg DAILY PO Last administered on 06/28/17 08:46; Start 06/27/17 at 09:00 Lorazepam (Ativan) 0.25 mg DAILY PO Last administered on 06/28/17 08:46; Start 06/27/17 at 09:00 Memantine (Namenda) 10 mg BID PO Last administered on 06/28/17 08:47; Start 06/26/17 at 21:00 Donepezil HCl (Aricept) 10 mg HS PO Last administered on 06/27/17 22:01; Start 06/26/17 at 21:00 Niacin (Slo-Niacin) 250 mg DAILY PO Last administered on 06/28/17 08:47; Start 06/27/17 at 09:00 Paroxetine HCl (Paxil) 40 mg DAILY PO Last administered on 06/28/17 08:47; Start 06/27/17 at 09:00 Pravastatin Sodium (Pravachol) 40 mg DAILY PO Last administered on 06/28/17 08:47; Start 06/27/17 at 09:00 Albuterol/ Ipratropium (Duoneb Neb) 1 ampule Q4HR NEB PRN NEB SOB/Wheezing Last administered on 06/27/17 02:35; Start 06/26/17 at 19:30 Sodium Chloride 1,000 ml @ 60 mls/hr [id number] IV Last administered on 20:30; Start 06/26/17 at 20:30; Stop 06/27/17 at 11:57; Status DC Dextrose (D50w (Vial) Inj) 50 ml UNSCH PRN IV PUSH HYPOGLYCEMIA-SEE COMMENTS; Start 06/26/17 at 20:45 Glucagon (Glucagon Inj) 1 mg UNSCH PRN OTHER HYPOGLYCEMIA-SEE COMMENTS; Start 06/26/17 at 20:45 Insulin Aspart (NovoLOG SUPPLEMENTAL SCALE) 1 ACHS SLIDING SCALE SQ Last administered on 06/28/17 13:51; Start 06/26/17 at 21:00 Azithromycin (Zithromax) 500 mg DAILY@1800 PO Last administered on 06/27/17 18:39; Start 06/27/17 at 18:00 Ceftriaxone Sodium 1000 mg/ Sodium Chloride 100 ml @ 200 mls/hr Q24H IV Last administered on 06/27/17 16:15; Start 06/27/17 at 17:00 Budesonide/ Formoterol Fumarate (Symbicort 160-4.5 Mcg Inh) 2 puff Q12HR INH Last administered on 06/28/17 08:43; Start 06/27/17 at 21:00 Prednisone (Deltasone) 20 mg DAILY PO Last administered on 06/28/17 08:47; Start 06/27/17 at 12:15 Albuterol/ Ipratropium (Duoneb Neb) 1 ampule Q6HR WHILE AWAKE NEB NEB Last administered on 06/28/17 14:23; Start 06/27/17 at 14:00 Guaifenesin (Mucinex Er) 600 mg BID PO Last administered on 06/28/17 08:45; Start 06/27/17 at 21:00 Miscellaneous (Pill Splitter) 1 ea UNSCH PRN OTHER SEE LABEL COMMENTS; Start 06/27/17 at 13:30 Attending Statement Neuro: neuro checks in a serial fashion. No, there is no indication for a neurosurgical intervention. Recommend nonoperative treatment and follow-up by a neurologist hypercholesterolemia Resume meds Pulmonary: On room air, aggressive pulmonary toilette, nasotracheal suction, and breathing treatments with nebulizers Nutrition. Tolerating Oral diet Renal. Continue to monitor closely urine output, BUN and creatinine Endocrine. Continue to Monitor serial Acu checks and SSI as needed in detail ID continue IV ABX for pneumonia Protonix for stress ulcer prophylaxis Pacheco ivan and SCD's for DVT prophylaxis Jose Cohen MD Jun 28, 2017 11:05
[2017-06-28 11:06] LABS: HEMO FLAGS AUTO DIFF
[2017-06-28 11:30] LABS: BICARBONATE 29.8 MEQ/L (21.0-32.0)
[2017-06-28 11:40] LABS: SCAN/DIFF AUTO DIFF CONFIRMED
[2017-06-28 11:59] LABS: POTASSIUM 2.8 MEQ/L (3.5-5.1)
[2017-06-28] MEDS: cefTRIAXone INJ 1,000 MG in SODIUM CHLORIDE 0.9% INJ 100 ML IV SCH (16:52)
[2017-06-28] MEDS: AZITHROMYCIN 250 MG TAB PO SCH (16:53)
[2017-06-28] MEDS: DONEPEZIL HCL 5 MG TAB PO SCH (20:55)
[2017-06-29] VITALS: BP 124/63; PULSE 87; RESP 20; TEMP 97.2; O2SAT 92
[2017-06-29 04:00] VITALS: BP 161/73; PULSE 91; RESP 20; TEMP 98.8; O2SAT 92
[2017-06-29 08:00] VITALS: BP 147/68; PULSE 86; RESP 17; TEMP 97.7; O2SAT 92
[2017-06-29] MEDS: INSULIN ASPART SUPPLEMENTAL SCALE SQ SCH ×4 (08:00→22:09)
[2017-06-29] MEDS: RESP: ALBUTEROL 2.5 MG/IPRATROPIUM 0.5 MG NEB (SCH) NEB ×3 (08:23→19:05)
[2017-06-29] MEDS: BUDESONIDE-FORMOTEROL 160/4.5 MCG INHALER INH SCH ×2 (08:54→22:08)
[2017-06-29] MEDS: SODIUM CHLORIDE 0.9% FLUSH 10 ML FLUSH IV FLUSH SCH ×2 (08:57→22:08)
[2017-06-29] MEDS: guaiFENesin E.R. 600 MG TAB PO SCH ×2 (08:58→22:07)
[2017-06-29] MEDS: NIACIN 250 MG CONTROLLED RELEASE TAB PO SCH (08:58)
[2017-06-29] MEDS: MEMANTINE HCL 10 MG TAB PO SCH ×2 (09:00→22:08)
[2017-06-29] MEDS: PRAVASTATIN SOD 40 MG TAB PO SCH (09:00)
[2017-06-29] MEDS: PARoxetine HCL 20 MG TAB PO SCH (09:00)
[2017-06-29] MEDS: LORazepam 0.5 MG TAB PO SCH (09:00)
[2017-06-29] MEDS: predniSONE 20 MG TAB PO SCH (09:00)
[2017-06-29] MEDS: FUROSEMIDE 20 MG TAB PO SCH (09:05)
--- NOTE | 2017-06-29 10:15 | HHI.PR ---
Subjective Remarks Follow-up health care associated pneumonia/UTI and subdural hematoma 06/27/17-patient seen and examined, currently afebrile, some expiratory wheezes 06/28/17-patient seen and examined, appeared calm and collected. Alert and oriented to self and patient having a conversation in both Frisian and Vietnamese. Being fed by a AIRPORT [employer] AGENT. 06/29/17-patient seen and examined, confused but pleasant. She did fell yesterday. She was seen by NSG yesterday..NO longer in restrain Objective Vitals Vital Signs Date Time Temp Pulse Resp B/P (MAP) Pulse Ox O2 Delivery O2 Flow Rate FiO2 06/29/17 08:00 97.7 86 17 147/68 (94) 92 06/29/17 04:00 98.8 91 20 161/73 (102) 92 06/29/17 00:00 97.2 87 20 124/63 (83) 92 06/28/17 20:45 86 06/28/17 20:00 99.6 93 20 123/58 (79) 94 06/28/17 19:42 92 06/28/17 16:00 98.3 97 16 101/62 (75) 90 06/28/17 12:00 97.8 98 17 152/71 (98) 95 I/O 06/28/17 06/28/17 06/28/17 06/29/17 06/29/17 06/29/17 07:00 15:00 23:00 07:00 15:00 23:00 Intake Total 400 ml 120 ml Output Total 150 ml Balance 400 ml -30 ml Intake Oral 300 ml 120 ml IV Total 100 ml Output Urine Total 150 ml # Voids 3 # Bowel Movements 0 0 Result Diagram: 06/28/17 0958 06/28/17 0958 Imaging Last Impressions Head CT 06/26/171948 Signed Impressions: Service Date/Time: Monday, June 26, 2017 20:07 - CONCLUSION: 1. Suspected small 4 mm subdural hemorrhage of the posterior falx without mass effect. 2. Age-related atrophy. Urban De Souza MD Chest X-Ray 06/26/17 9907 Signed Impressions: Service Date/Time: Monday, June 26, 2017 17:39 - CONCLUSION: Focal parenchymal changes in the right middle lobe suggestive of pneumonia. Evert Morgan MD Objective Remarks GENERAL: NAD SKIN: Warm and dry. HEAD: Normocephalic. EYES: No scleral icterus. No injection or drainage. NECK: Supple, trachea midline. No JVD or lymphadenopathy. CARDIOVASCULAR: Regular rate and rhythm without murmurs, gallops, or rubs. RESPIRATORY: Breath sounds equal bilaterally. No accessory muscle use. GASTROINTESTINAL: Abdomen soft, non-tender, nondistended. MUSCULOSKELETAL: No cyanosis, or edema. BACK: Nontender without obvious deformity. No CVA tenderness. A/P Problem List: (1) Sepsis ICD Code: A41.9 - Sepsis, unspecified organism Status: Acute (2) HCAP (healthcare-associated pneumonia) ICD Code: J18.9 - Pneumonia, unspecified organism (3) Dementia ICD Code: F03.90 - Unspecified dementia without behavioral disturbance (4) COPD with exacerbation ICD Code: J44.1 - Chronic obstructive pulmonary disease with (acute) exacerbation (5) UTI (urinary tract infection) ICD Code: N39.0 - Urinary tract infection, site not specified (6) SDH (subdural hematoma) ICD Code: I62.00 - Nontraumatic subdural hemorrhage, unspecified Assessment and Plan 81-year-old female with Sepsis: Secondary to HCAP and UTI Currently on Rocephin and cefepime pending culture report Healthcare associated pneumonia Currently on Rocephin and cefepime pending culture report Maintain oxygen saturation above 92%; DuoNeb when necessary HLIV Urinary tract infection Urine culture negative On Rocephin Acute renal failure Resolved with IV fluid hydration HLIV Diabetes mellitus Continue Holding home metformin; currently on SSI Dementia/hyperlipidemia Continue home medications COPD exacerbation 2 new low-dose steroid, DuoNeb scheduled + when necessary, LABA, Mucinex and continue antibiotics Oxygen and DuoNebs as above Subdural hematoma CT head noted and review Neurosurgery consultation pending Agitation Now resolved, DVT prophylaxis Problem Qualifiers (1) Sepsis: Qualified Codes: A41.9 - Sepsis, unspecified organism Zane Rivers MD Jun 29, 2017 10:15
[2017-06-29] MEDS ORDERED: POTASSIUM CHLORIDE 10 MEQ CONTROLLED RELEASE TAB PO ONE (10:45)
[2017-06-29 11:50] LABS: AUTOMATED NEUTROPHIL # 9.6 TH/MM3 (1.8-7.7); BASOPHIL # 0.1 TH/MM3 (0-0.2); BASOPHIL % 0.5 % (0.0-2.0); EOSINOPHIL % 0.3 % (0.0-4.0); HEMATOCRIT 36.5 % (35.0-46.0); HEMO FLAGS AUTO DIFF; LYMPH % 17.9 % (9.0-44.0); LYMPHOCYTE # 2.4 TH/MM3 (1.0-4.8); MEAN CORPUSCULAR HEMOGLOBIN 30.5 PG (27.0-34.0); MEAN CORPUSCULAR HGB CONC 33.9 % (32.0-36.0); NEUT % 70.3 % (16.0-70.0); PLATELET COUNT 441 TH/MM3 (150-450); RED BLOOD COUNT 4.06 MIL/MM3 (4.00-5.30); RED CELL DISTRIBUTION WIDTH 13.3 % (11.6-17.2); WHITE BLOOD COUNT 13.7 TH/MM3 (4.0-11.0)
[2017-06-29 12:00] VITALS: BP 145/70; PULSE 88; RESP 16; TEMP 98.3; O2SAT 93
[2017-06-29 12:16] LABS: BICARBONATE 28.6 MEQ/L (21.0-32.0); POTASSIUM 3.1 MEQ/L (3.5-5.1)
[2017-06-29 12:45] LABS: BANDS 8 % (0-6); EOSINOPHILS 1 % (0-4); MYELOCYTES 1 % (0-0); NEUTROPHIL # MANUAL DIFF 9.9 TH/MM3 (1.8-7.7); PLATELET ESTIMATE SMEAR HIGH (NORMAL); PLATELET MORPHOLOGY NORMAL (NORMAL); POLYS (SEG NEUTROPHILS) 63 % (16-70); SCAN/DIFF FINAL DIFF MANUAL; TOXIC GRANULATION 2+ (NORMAL); WBC DIFF SAMPLE 100
--- NOTE | 2017-06-29 15:51 | HHI.NSPN ---
(Dedra De Jesus) Note Status Status: Progress Note (Dedra De Jesus) Interval History Interval History This is a 81-year-old female with a history of dementia, COPD, hyperlipidemia and type 2 diabetes mellitus was brought to the emergency department by EMS after a fall in her long-term facility. Apparently she was found to be tachypneic with a respiratory rate of 24 and febrile to 102.7. She was hypoxic on arrival to the emergency department, requiring 2 L nasal cannula. She denies shortness of breath and fever/chills. Denies cough. Chest x-ray showed focal parenchymal changes in the right middle lobe suggestive of pneumonia. WBC 18.9. Patient is oriented only to self as her baseline. CT of the brain show a small area of intracranial bleed. Neurosurgical consultation was requested. 06/29: pleasantly confused, moving all four extremities. (Dedra De Jesus) Labs, Micro, & Vital Signs Results Date Time Temp Pulse Resp B/P (MAP) Pulse Ox O2 Delivery O2 Flow Rate FiO2 06/29/17 12:00 98.3 88 16 145/70 (95) 93 06/29/17 08:00 97.7 86 17 147/68 (94) 92 06/29/17 04:00 98.8 91 20 161/73 (102) 92 06/29/17 00:00 97.2 87 20 124/63 (83) 92 06/28/17 20:45 86 06/28/17 20:00 99.6 93 20 123/58 (79) 94 06/28/17 19:42 92 06/28/17 16:00 98.3 97 16 101/62 (75) 90 Constitutional Vital Signs Date Time Temp Pulse Resp B/P (MAP) Pulse Ox O2 Delivery O2 Flow Rate FiO2 06/29/17 12:00 98.3 88 16 145/70 (95) 93 06/29/17 08:00 97.7 86 17 147/68 (94) 92 06/29/17 04:00 98.8 91 20 161/73 (102) 92 06/29/17 00:00 97.2 87 20 124/63 (83) 92 06/28/17 20:45 86 06/28/17 20:00 99.6 93 20 123/58 (79) 94 06/28/17 19:42 92 06/28/17 16:00 98.3 97 16 101/62 (75) 90 (Dedra De Jesus) Review of Systems ROS Limitations: Poor Historian (Dedra De Jesus) Physical Exam Ms. Alexis is alert, confused, oriented to self only. Feeding herself breakfast. Follows simple commands. Cranial nerve examination: pupils equal, round, and reactive to light. Facial motor function appears normal and symmetrical. Neck is soft and supple. Muscle testing reveals normal bulk and tone. Motor: moves all four extremities grossly symmetric, exam limited due to clinical condition. Deep tendon reflexes are 1+ in the upper and lower extremities. There is a bilateral plantar flexion response. Cerebellar examination is limited due to the patient condition, but no obvious deficits are noted. (Dedra De Jesus) Ms. Alexis is alert, confused, oriented to self only. Feeding herself breakfast. Follows simple commands. Cranial nerve examination: pupils equal, round, and reactive to light. Facial motor function appears normal and symmetrical. Neck is soft and supple. Muscle testing reveals normal bulk and tone. Motor: moves all four extremities grossly symmetric, exam limited due to clinical condition. Deep tendon reflexes are 1+ in the upper and lower extremities. There is a bilateral plantar flexion response. Cerebellar examination is limited due to the patient con (Jose Cohen MD) Medications Current Medications Current Medications Medications (Trade) Dose Ordered Sig/Skinny Route PRN Reason Start Time Stop Time Status Last Admin Dose Admin Sodium Chloride (NS Flush) 2 ml UNSCH PRN IV FLUSH FLUSH AFTER USING IV ACCESS 06/26/17 19:30 Sodium Chloride (NS Flush) 2 ml BID IV FLUSH 06/26/17 21:00 06/29/17 08:57 Acetaminophen (Tylenol) 650 mg Q4H PRN PO TEMP > 100.4 06/26/17 19:30 Ondansetron HCl (Zofran Inj) 4 mg Q6H PRN IVP NAUSEA OR VOMITING 06/26/17 19:30 Naloxone HCl (Narcan Inj) 0.4 mg UNSCH PRN IV PUSH SEE LABEL COMMENTS 06/26/17 19:30 Magnesium Hydroxide (Milk Of Gabriela Liq) 30 ml Q12H PRN PO Mild constipation 06/26/17 19:30 Furosemide (Lasix) 20 mg DAILY PO 06/27/17 09:00 06/29/17 09:05 Lorazepam (Ativan) 0.25 mg DAILY PO 06/27/17 09:00 06/29/17 09:00 Memantine (Namenda) 10 mg BID PO 06/26/17 21:00 06/29/17 09:00 Donepezil HCl (Aricept) 10 mg HS PO 06/26/17 21:00 06/28/17 20:55 Niacin (Slo-Niacin) 250 mg DAILY PO 06/27/17 09:00 06/29/17 08:58 Paroxetine HCl (Paxil) 40 mg DAILY PO 06/27/17 09:00 06/29/17 09:00 Pravastatin Sodium (Pravachol) 40 mg DAILY PO 06/27/17 09:00 06/29/17 09:00 Albuterol/ Ipratropium (Duoneb Neb) 1 ampule Q4HR NEB PRN NEB SOB/Wheezing 06/26/17 19:30 06/27/17 02:35 Dextrose (D50w (Vial) Inj) 50 ml UNSCH PRN IV PUSH HYPOGLYCEMIA-SEE COMMENTS 06/26/17 20:45 Glucagon (Glucagon Inj) 1 mg UNSCH PRN OTHER HYPOGLYCEMIA-SEE COMMENTS 06/26/17 20:45 Insulin Aspart (NovoLOG SUPPLEMENTAL SCALE) 1 ACHS SLIDING SCALE SQ 06/26/17 21:00 06/29/17 12:00 Azithromycin (Zithromax) 500 mg DAILY@1800 PO 06/27/17 18:00 06/28/17 16:53 Ceftriaxone Sodium 1000 mg/ Sodium Chloride 100 ml @ 200 mls/hr Q24H IV 06/27/17 17:00 06/28/17 16:52 Budesonide/ Formoterol Fumarate (Symbicort 160-4.5 Mcg Inh) 2 puff Q12HR INH 06/27/17 21:00 06/29/17 08:54 Prednisone (Deltasone) 20 mg DAILY PO 06/27/17 12:15 06/29/17 09:00 Albuterol/ Ipratropium (Duoneb Neb) 1 ampule Q6HR WHILE AWAKE NEB NEB 06/27/17 14:00 06/29/17 14:08 Guaifenesin (Mucinex Er) 600 mg BID PO 06/27/17 21:00 06/29/17 08:58 Miscellaneous (Pill Splitter) 1 ea UNSCH PRN OTHER SEE LABEL COMMENTS 06/27/17 13:30 (Dedra De Jesus) Current Medications Current Medications Acetaminophen (Tylenol) 650 mg ONCE ONCE PO Last administered on 06/26/17 18 :17; Start 06/26/17 at 17:30; Stop 06/26/17 at 17:31; Status DC Ceftriaxone Sodium 2000 mg/ Sodium Chloride 100 ml @ 200 mls/hr ONCE STAT IV Last administered on 06/26/17 17:54; Start 06/26/17 at 17:17; Stop 06/26/17 at 17:46; Status DC Azithromycin 500 mg/Sodium Chloride 250 ml @ 250 mls/hr ONCE STAT IV Last administered on 06/26/17 18:17; Start 06/26/17 at 17:17; Stop 06/26/17 at 18 :16; Status DC Sodium Chloride 1,000 ml @ 1,000 mls/hr Q1H ONCE IV Last administered on 06/26 18:17; Start 06/26/17 at 17:17; Stop 06/26/17 at 18:16; Status DC Sodium Chloride 800 ml @ 1,000 mls/hr Q48M ONCE IV Last administered on 18:46; Start 06/26/17 at 17:17; Stop 06/26/17 at 18:04; Status DC Erythromycin (Ilotycin 0.5% Opth Oint) 1 applic ONCE ONCE EACH EYE Last administered on 06/26/17 18:46; Start 06/26/17 at 17:30; Stop 06/26/17 at 17 :31; Status DC Sodium Chloride (NS Flush) 2 ml UNSCH PRN IV FLUSH FLUSH AFTER USING IV ACCESS ; Start 06/26/17 at 19:30; Stop 06/30/17 at 15:24; Status DC Sodium Chloride (NS Flush) 2 ml BID IV FLUSH Last administered on 06/30/17 09 :00; Start 06/26/17 at 21:00; Stop 06/30/17 at 15:24; Status DC Acetaminophen (Tylenol) 650 mg Q4H PRN PO TEMP > 100.4; Start 06/26/17 at 19: 30; Stop 06/30/17 at 15:24; Status DC Ondansetron HCl (Zofran Inj) 4 mg Q6H PRN IVP NAUSEA OR VOMITING; Start at 19:30; Stop 06/30/17 at 15:24; Status DC Heparin Sodium (Porcine) (Heparin Inj) 5,000 units Q12HR SQ Last administered on 06/27/17 08:29; Start 06/26/17 at 21:00; Stop 06/27/17 at 17:13; Status DC Naloxone HCl (Narcan Inj) 0.4 mg UNSCH PRN IV PUSH SEE LABEL COMMENTS; Start 06/26/17 at 19:30; Stop 06/30/17 at 15:24; Status DC Senna/Docusate Sodium (More-Colace) 1 tab BID PO Last administered on 08:28; Start 06/26/17 at 21:00; Stop 06/27/17 at 11:58; Status DC Magnesium Hydroxide (Milk Of Magnesia Liq) 30 ml Q12H PRN PO Mild constipation ; Start 06/26/17 at 19:30; Stop 06/30/17 at 15:24; Status DC Sennosides (Senokot) 17.2 mg Q12H PRN PO Moderate constipation; Start at 19:30; Stop 06/27/17 at 11:58; Status DC Bisacodyl (Dulcolax Supp) 10 mg DAILY PRN RECTAL SEVERE CONSITIPATION; Start 06/26/17 at 19:30; Stop 06/27/17 at 11:58; Status DC Lactulose (Lactulose Liq) 30 ml DAILY PRN PO SEVERE CONSITIPATION; Start 06/26 at 19:30; Stop 06/27/17 at 11:58; Status DC Furosemide (Lasix) 20 mg DAILY PO Last administered on 06/30/17 11:10; Start 06/27/17 at 09:00; Stop 06/30/17 at 15:24; Status DC Lorazepam (Ativan) 0.25 mg DAILY PO Last administered on 06/30/17 11:10; Start 06/27/17 at 09:00; Stop 06/30/17 at 15:24; Status DC Memantine (Namenda) 10 mg BID PO Last administered on 06/30/17 11:09; Start 06/26/17 at 21:00; Stop 06/30/17 at 15:24; Status DC Donepezil HCl (Aricept) 10 mg HS PO Last administered on 06/29/17 22:08; Start 06/26/17 at 21:00; Stop 06/30/17 at 15:24; Status DC Niacin (Slo-Niacin) 250 mg DAILY PO Last administered on 06/30/17 11:09; Start 06/27/17 at 09:00; Stop 06/30/17 at 15:24; Status DC Paroxetine HCl (Paxil) 40 mg DAILY PO Last administered on 06/30/17 11:09; Start 06/27/17 at 09:00; Stop 06/30/17 at 15:24; Status DC Pravastatin Sodium (Pravachol) 40 mg DAILY PO Last administered on 06/30/17 11:08; Start 06/27/17 at 09:00; Stop 06/30/17 at 15:24; Status DC Albuterol/ Ipratropium (Duoneb Neb) 1 ampule Q4HR NEB PRN NEB SOB/Wheezing Last administered on 06/27/17 02:35; Start 06/26/17 at 19:30; Stop 06/30/17 at 15:24; Status DC Sodium Chloride 1,000 ml @ 60 mls/hr [id number] IV Last administered on 20:30; Start 06/26/17 at 20:30; Stop 06/27/17 at 11:57; Status DC Dextrose (D50w (Vial) Inj) 50 ml UNSCH PRN IV PUSH HYPOGLYCEMIA-SEE COMMENTS; Start 06/26/17 at 20:45; Stop 06/30/17 at 15:24; Status DC Glucagon (Glucagon Inj) 1 mg UNSCH PRN OTHER HYPOGLYCEMIA-SEE COMMENTS; Start 06/26/17 at 20:45; Stop 06/30/17 at 15:24; Status DC Insulin Aspart (NovoLOG SUPPLEMENTAL SCALE) 1 ACHS SLIDING SCALE SQ Last administered on 06/30/17 12:00; Start 06/26/17 at 21:00; Stop 06/30/17 at 15 :24; Status DC Azithromycin (Zithromax) 500 mg DAILY@1800 PO Last administered on 06/29/17 17:35; Start 06/27/17 at 18:00; Stop 06/30/17 at 15:24; Status DC Ceftriaxone Sodium 1000 mg/ Sodium Chloride 100 ml @ 200 mls/hr Q24H IV Last administered on 06/29/17 17:35; Start 06/27/17 at 17:00; Stop 06/30/17 at 15 :24; Status DC Budesonide/ Formoterol Fumarate (Symbicort 160-4.5 Mcg Inh) 2 puff Q12HR INH Last administered on 06/30/17 11:23; Start 06/27/17 at 21:00; Stop 06/30/17 at 15:24; Status DC Prednisone (Deltasone) 20 mg DAILY PO Last administered on 06/30/17 11:10; Start 06/27/17 at 12:15; Stop 06/30/17 at 15:24; Status DC Albuterol/ Ipratropium (Duoneb Neb) 1 ampule Q6HR WHILE AWAKE NEB NEB Last administered on 06/30/17 12:28; Start 06/27/17 at 14:00; Stop 06/30/17 at 15 :24; Status DC Guaifenesin (Mucinex Er) 600 mg BID PO Last administered on 06/30/17 11:08; Start 06/27/17 at 21:00; Stop 06/30/17 at 15:24; Status DC Miscellaneous (Pill Splitter) 1 ea UNSCH PRN OTHER SEE LABEL COMMENTS; Start 06/27/17 at 13:30; Stop 06/30/17 at 15:24; Status DC Potassium Chloride (KCl) 60 meq ONCE ONCE PO Last administered on 06/29/17 11:34; Start 06/29/17 at 10:45; Stop 06/29/17 at 10:46; Status DC (Jose Cohen MD) Medical Decision Making MDM Remarks 81 year old female with small interhemispheric subdural hematoma within the falx patient remains confused but stable nonfocal examination (Dedra De Jesus) Plan Plan Remarks cont nonoperative management cont therapy serial neuro checks (Dedra De Jesus) Attending Statement Neuro:Continue neuro checks in a serial fashion. No, there is no indication for a neurosurgical intervention. Continue nonoperative treatment and follow-up by a neurologist hypercholesterolemia Resume meds Pulmonary: On room air, aggressive pulmonary toilette, nasotracheal suction, and breathing treatments with nebulizers Nutrition. Tolerating Oral diet Renal. Continue to monitor closely urine output, BUN and creatinine Endocrine. Continue to Monitor serial Acu checks and SSI as needed in detail ID continue IV ABX for pneumonia Protonix for stress ulcer prophylaxis Pacheco hose and SCD's for DVT prophylaxis The exam, history, and the medical decision-making described in the above note were completed with the assistance of the mid-level provider. I reviewed and agree with the findings presented. I attest that I had a [id number] encounter with the patient on the same day, and personally performed and documented my assessment and findings in the medical record. (Jose Cohen MD) Dedra De Jesus Jun 29, 2017 15:51 Jose Cohen MD Jun 30, 2017 17:40
[2017-06-29] MEDS: cefTRIAXone INJ 1,000 MG in SODIUM CHLORIDE 0.9% INJ 100 ML IV SCH (17:35)
[2017-06-29] MEDS: AZITHROMYCIN 250 MG TAB PO SCH (17:35)
[2017-06-29 19:05] VITALS: O2SAT 93
[2017-06-29 20:00] VITALS: BP 134/64; PULSE 78; RESP 18; TEMP 97.5; O2SAT 91
[2017-06-29] MEDS: DONEPEZIL HCL 5 MG TAB PO SCH (22:08)
[2017-06-30] VITALS: BP 147/66; PULSE 55; RESP 17; TEMP 97.5; O2SAT 92
[2017-06-30 04:00] VITALS: BP 186/79; PULSE 78; RESP 17; TEMP 97.5; O2SAT 91
[2017-06-30 07:50] LABS: AUTOMATED NEUTROPHIL # 7.8 TH/MM3 (1.8-7.7); BASOPHIL # 0.1 TH/MM3 (0-0.2); BASOPHIL % 0.4 % (0.0-2.0); EOSINOPHIL # 0.1 TH/MM3 (0-0.4); EOSINOPHIL % 0.9 % (0.0-4.0); HEMATOCRIT 36.2 % (35.0-46.0); LYMPH % 24.8 % (9.0-44.0); LYMPHOCYTE # 3.1 TH/MM3 (1.0-4.8); MEAN CELL VOLUME 90.6 FL (80.0-100.0); MEAN CORPUSCULAR HEMOGLOBIN 30.2 PG (27.0-34.0); MEAN CORPUSCULAR HGB CONC 33.3 % (32.0-36.0); MONO % 11.2 % (0.0-8.0); NEUT % 62.7 % (16.0-70.0); PLATELET COUNT 475 TH/MM3 (150-450); WHITE BLOOD COUNT 12.5 TH/MM3 (4.0-11.0)
[2017-06-30 07:52] LABS: HEMO FLAGS AUTO DIFF
[2017-06-30 08:00] VITALS: BP 123/64; PULSE 69; RESP 16; TEMP 97; O2SAT 99
[2017-06-30] MEDS: INSULIN ASPART SUPPLEMENTAL SCALE SQ SCH ×2 (08:00→12:00)
[2017-06-30] MEDS: RESP: ALBUTEROL 2.5 MG/IPRATROPIUM 0.5 MG NEB (SCH) NEB ×2 (08:06→12:28)
[2017-06-30 08:15] LABS: BICARBONATE 30.4 MEQ/L (21.0-32.0); POTASSIUM 3.5 MEQ/L (3.5-5.1)
[2017-06-30 08:37] LABS: BANDS 8 % (0-6); BASOPHILS 1 % (0-2); MYELOCYTES 2 % (0-0); NEUTROPHIL # MANUAL DIFF 8.1 TH/MM3 (1.8-7.7); PLATELET ESTIMATE SMEAR HIGH (NORMAL); PLATELET MORPHOLOGY NORMAL (NORMAL); POLYS (SEG NEUTROPHILS) 55 % (16-70); SCAN/DIFF FINAL DIFF MANUAL; TOXIC GRANULATION 1+ (NORMAL); WBC DIFF SAMPLE 100
[2017-06-30] MEDS: SODIUM CHLORIDE 0.9% FLUSH 10 ML FLUSH IV FLUSH SCH (09:00)
--- NOTE | 2017-06-30 10:28 | HHI.PR ---
Subjective Remarks Follow-up health care associated pneumonia/UTI and subdural hematoma 06/27/17-patient seen and examined, currently afebrile, some expiratory wheezes 06/28/17-patient seen and examined, appeared calm and collected. Alert and oriented to self and patient having a conversation in both Faroese and Bulgarian. Being fed by a [employer]AIL [employer]. 06/29/17-patient seen and examined, confused but pleasant. She did fell yesterday. She was seen by NSG yesterday..NO longer in restrain 06/30/17-patient seen and examined, alert and oriented 3. No acute event overnight. Currently afebrile. Objective Vitals Vital Signs Date Time Temp Pulse Resp B/P (MAP) Pulse Ox O2 Delivery O2 Flow Rate FiO2 06/30/17 08:00 97.0 69 16 123/64 (83) 99 06/30/17 04:00 97.5 78 17 186/79 (114) 91 06/30/17 00:00 97.5 55 17 147/66 (93) 92 06/29/17 20:00 97.5 78 18 134/64 (87) 91 06/29/17 19:05 93 21 06/29/17 12:00 98.3 88 16 145/70 (95) 93 I/O 06/29/17 06/29/17 06/29/17 06/30/17 06/30/17 06/30/17 07:00 15:00 23:00 07:00 15:00 23:00 Intake Total 120 ml 240 ml Output Total 150 ml Balance -30 ml 240 ml Intake Oral 120 ml 240 ml Output Urine Total 150 ml # Bowel Movements 0 Result Diagram: 06/30/17 0606/30/17 06 Imaging Last Impressions Head CT 06/26/171948 Signed Impressions: Service Date/Time: Monday, June 26, 2017 20:07 - CONCLUSION: 1. Suspected small 4 mm subdural hemorrhage of the posterior falx without mass effect. 2. Age-related atrophy. Urban De Souza MD Chest X-Ray 06/26/17 1717 Signed Impressions: Service Date/Time: Monday, June 26, 2017 17:39 - CONCLUSION: Focal parenchymal changes in the right middle lobe suggestive of pneumonia. Evert Morgan MD Objective Remarks GENERAL: NAD SKIN: Warm and dry. HEAD: Normocephalic. EYES: No scleral icterus. No injection or drainage. NECK: Supple, trachea midline. No JVD or lymphadenopathy. CARDIOVASCULAR: Regular rate and rhythm without murmurs, gallops, or rubs. RESPIRATORY: Breath sounds equal bilaterally. No accessory muscle use. GASTROINTESTINAL: Abdomen soft, non-tender, nondistended. MUSCULOSKELETAL: No cyanosis, or edema. BACK: Nontender without obvious deformity. No CVA tenderness. Procedures none A/P Problem List: (1) Sepsis ICD Code: A41.9 - Sepsis, unspecified organism Status: Resolved (2) HCAP (healthcare-associated pneumonia) ICD Code: J18.9 - Pneumonia, unspecified organism (3) Dementia ICD Code: F03.90 - Unspecified dementia without behavioral disturbance Status: Chronic (4) COPD with exacerbation ICD Code: J44.1 - Chronic obstructive pulmonary disease with (acute) exacerbation Status: Resolved (5) UTI (urinary tract infection) ICD Code: N39.0 - Urinary tract infection, site not specified (6) SDH (subdural hematoma) ICD Code: I62.00 - Nontraumatic subdural hemorrhage, unspecified Assessment and Plan 81-year-old female with Sepsis: Secondary to HCAP and UTI-Resolved Currently on Rocephin and cefepime with culture NTD Healthcare associated pneumonia Currently on Rocephin and cefepime with culture NTD Will switch to PO antibiotic Maintain oxygen saturation above 92%; DuoNeb when necessary HLIV Urinary tract infection Urine culture negative On Rocephin Acute renal failure Resolved with IV fluid hydration HLIV Diabetes mellitus Continue Holding home metformin; currently on SSI Dementia/hyperlipidemia Continue home medications COPD exacerbation-Resolved Continue low-dose steroid, DuoNeb scheduled + when necessary, LABA, Mucinex and continue antibiotics Oxygen and DuoNebs as above Subdural hematoma CT head noted and review Neurosurgery consultation input appreciate Agitation Now resolved, DVT prophylaxis Problem Qualifiers (1) Sepsis: Qualified Codes: A41.9 - Sepsis, unspecified organism Zane Rivers MD Jun 30, 2017 10:28
[2017-06-30] MEDS ORDERED: AZIT250T3 PO (10:30)
[2017-06-30] MEDS ORDERED: PRED20 PO (10:30)
[2017-06-30] MEDS ORDERED: LORA-392 PO (10:30)
[2017-06-30] MEDS ORDERED: guaiFENesin ER PO (10:30)
[2017-06-30] MEDS ORDERED: Budeson-Formot 160-4.5 Mcg Inh INH (10:30)
--- NOTE | 2017-06-30 10:37 | HHI.DS ---
Discharge Summary Admission Date Jun 26, 2017 at 19:40 Discharge Date: Jun 30, 2017 Admitting Diagnosis Sepsis; PNA (1) Sepsis ICD Code: A41.9 - Sepsis, unspecified organism Status: Resolved (2) HCAP (healthcare-associated pneumonia) ICD Code: J18.9 - Pneumonia, unspecified organism (3) Dementia ICD Code: F03.90 - Unspecified dementia without behavioral disturbance Status: Chronic (4) COPD with exacerbation ICD Code: J44.1 - Chronic obstructive pulmonary disease with (acute) exacerbation Status: Resolved (5) UTI (urinary tract infection) ICD Code: N39.0 - Urinary tract infection, site not specified (6) SDH (subdural hematoma) ICD Code: I62.00 - Nontraumatic subdural hemorrhage, unspecified Procedures none Brief History - From Admission 81-year-old female with a past medical history significant for dementia, COPD, hyperlipidemia and type 2 diabetes mellitus was brought to the emergency department by EMS after a fall in her group home facility earlier today. The patient was found to be tachypneic with a respiratory rate of 24 and febrile to 102.7. She was hypoxic on arrival to the emergency department, requiring 2 L nasal cannula. Patient denies shortness of breath and fever/ chills. Denies cough. Chest x-ray showed focal parenchymal changes in the right middle lobe suggestive of pneumonia. WBC 18.9. Patient is oriented only to self. Believes it is 1936. CBC/BMP: 06/30/17 0626 06/30/17 0626 Significant Findings Laboratory Tests Test 06/28/17 09:58 06/29/17 10:14 06/30/17 06:26 White Blood Count 16.5 TH/MM3 (4.0-11.0) 13.7 TH/MM3 (4.0-11.0) 12.5 TH/MM3 (4.0-11.0) Neutrophils (%) (Auto) 78.2 % (16.0-70.0) 70.3 % (16.0-70.0) Neutrophils # (Auto) 12.9 TH/MM3 (1.8-7.7) 9.6 TH/MM3 (1.8-7.7) 7.8 TH/MM3 (1.8-7.7) Monocytes # (Auto) 1.3 TH/MM3 (0-0.9) 1.5 TH/MM3 (0-0.9) 1.4 TH/MM3 (0-0.9) Blood Urea Nitrogen 20 MG/DL (7-18) 22 MG/DL (7-18) 21 MG/DL (7-18) Random Glucose 126 MG/DL (74-106) 181 MG/DL (74-106) Potassium Level 2.8 MEQ/L (3.5-5.1) 3.1 MEQ/L (3.5-5.1) Monocytes (%) (Auto) 11.0 % (0.0-8.0) 11.2 % (0.0-8.0) Band Neutrophils % 8 % (0-6) 8 % (0-6) Neutrophils # (Manual) 9.9 TH/MM3 (1.8-7.7) 8.1 TH/MM3 (1.8-7.7) Myelocytes 1 % (0-0) 2 % (0-0) Toxic Granulation 2+ (NORMAL) 1+ (NORMAL) Platelet Estimate HIGH (NORMAL) HIGH (NORMAL) Estimat Glomerular Filtration Rate 86 ML/MIN (>89) Platelet Count 475 TH/MM3 (150-450) Sodium Level 147 MEQ/L (136-145) Chloride Level 110 MEQ/L (98-107) Imaging Last Impressions Head CT 06/26/17 194 Signed Impressions: Service Date/Time: Monday, June 26, 2017 20:07 - CONCLUSION: 1. Suspected small 4 mm subdural hemorrhage of the posterior falx without mass effect. 2. Age-related atrophy. Urban De Souza MD Chest X-Ray 06/26/17 1717 Signed Impressions: Service Date/Time: Monday, June 26, 2017 17:39 - CONCLUSION: Focal parenchymal changes in the right middle lobe suggestive of pneumonia. Evert Morgan MD PE at Discharge GENERAL: NAD SKIN: Warm and dry. HEAD: Normocephalic. EYES: No scleral icterus. No injection or drainage. NECK: Supple, trachea midline. No JVD or lymphadenopathy. CARDIOVASCULAR: Regular rate and rhythm without murmurs, gallops, or rubs. RESPIRATORY: Breath sounds equal bilaterally. No accessory muscle use. GASTROINTESTINAL: Abdomen soft, non-tender, nondistended. MUSCULOSKELETAL: No cyanosis, or edema. BACK: Nontender without obvious deformity. No CVA tenderness. Hospital Course Patient admitted secondary to sepsis due to healthcare associated pneumonia and UTI for which she was started on IV antibiotics were monitored and all cultures. She was treated for COPD exacerbation with IV steroid and long- acting beta agonists. She was subsequently switched to by mouth prednisone. Neurosurgery was consulted secondary to subdural hematoma however she was treated conservatively manage medically. She was placed on sliding scale insulin, and DVT and GI prophylaxis were provided. Physical therapy was consulted. Prior to discharge, patient's condition improved. All cultures were negative to date, and She will complaint by mouth antibiotic with azithromycin 5 more days. Pt Condition on Discharge: Stable Discharge Disposition: Discharge to SNF Discharge Time: > 30 minutes Discharge Instructions DIET: Follow Instructions for: Heart Healthy Diet Activities you can perform: Regular-No Restrictions Follow up Referrals: Neurosurgery PCP Follow-up - 2-3 Days New Medications: Azithromycin (Azithromycin) 250 Mg Tab 500 MG PO DAILY@1800 for Infection, #5 TAB Prednisone (Prednisone) 20 Mg Tab 20 MG PO DAILY for Breathing Treatment, #7 TAB [Budeson-Formot 160-4.5 Mcg Inh] () 60 PUFF AERO 2 PUFF INH Q12HR for Breathing Treatment for 30 Days [guaiFENesin ER] () 600 MG TABCR 600 MG PO BID for Breathing Treatment, #20 Continued Medications: Acetaminophen (Tylenol) 325 Mg Tab 325 MG PO Q4H PRN for ELEVATED TEMPERATURE, TAB 0 Refills Acetaminophen (Tylenol) 325 Mg Tab 650 MG PO Q4H PRN for PAIN, TAB 0 Refills Cholecalciferol (Vitamin D-3) 1,000 Unit Cap 1000 UNITS PO DAILY for Nutritional Supplement Donepezil HCl (Aricept) 10 Mg Tablet 10 MG PO HS for Dementia Furosemide (Lasix) 20 Mg Tab 20 MG PO DAILY for 1 Day, #1 TAB 0 Refills Glipizide (Glipizide) 10 Mg Tab 10 MG PO BID for Blood Sugar Management, #60 TAB 0 Refills Take 30 minutes before a meal Ipratropium-Albuterol Neb (Duoneb) 0.5-2.5 Mg/3 Ml Neb 3 ML NEB Q6HR for Cough for 3 Days, NEBULE 0 Refills Lorazepam (Ativan) 0.5 Mg Tab 0.25 MG PO DAILY for Anxiety, #10 TAB 0 Refills (This prescription has been renewed) Memantine (Namenda) 10 Mg Tab 10 MG PO BID for Alzheimer Disease, #30 TAB 0 Refills Metformin (Metformin) 1,000 Mg Tab 1000 MG PO BID for Blood Sugar Management, #60 TAB 0 Refills Niacin (Plain Niacin) 250 Mg Tablet 250 MG PO DAILY for Cholesterol Management Paroxetine HCl (Paxil) 40 Mg Tablet 40 MG PO DAILY for Depression Control Simvastatin (Zocor) 20 Mg Tab 20 MG PO DAILY for Cholesterol Management, #30 TAB 0 Refills Discontinued Medications: Clarithromycin (Clarithromycin) 500 Mg Tab 500 MG PO Q12HR for Infection for 3 Days, TAB 0 Refills Zane Rivers MD Jun 30, 2017 10:37
[2017-06-30] MEDS: PRAVASTATIN SOD 40 MG TAB PO SCH (11:08)
[2017-06-30] MEDS: guaiFENesin E.R. 600 MG TAB PO SCH (11:08)
[2017-06-30] MEDS: NIACIN 250 MG CONTROLLED RELEASE TAB PO SCH (11:09)
[2017-06-30] MEDS: MEMANTINE HCL 10 MG TAB PO SCH (11:09)
[2017-06-30] MEDS: PARoxetine HCL 20 MG TAB PO SCH (11:09)
[2017-06-30] MEDS: FUROSEMIDE 20 MG TAB PO SCH (11:10)
[2017-06-30] MEDS: LORazepam 0.5 MG TAB PO SCH (11:10)
[2017-06-30] MEDS: predniSONE 20 MG TAB PO SCH (11:10)
[2017-06-30] MEDS: BUDESONIDE-FORMOTEROL 160/4.5 MCG INHALER INH SCH (11:23)
[2017-06-30 12:00] VITALS: BP 125/69; PULSE 72; RESP 17; TEMP 96.9; O2SAT 97
--- NOTE | 2017-06-30 17:38 | HHI.NSPN ---
Note Status Status: Progress Note Interval History Diagnosis TBI Interval History This is a 81-year-old female with a history of dementia, COPD, hyperlipidemia and type 2 diabetes mellitus was brought to the emergency department by EMS after a fall in her assisted facility. Apparently she was found to be tachypneic with a respiratory rate of 24 and febrile to 102.7. She was hypoxic on arrival to the emergency department, requiring 2 L nasal cannula. She denies shortness of breath and fever/chills. Denies cough. Chest x-ray showed focal parenchymal changes in the right middle lobe suggestive of pneumonia. WBC 18.9. Patient is oriented only to self as her baseline. CT of the brain show a small area of intracranial bleed. Neurosurgical consultation was requested. 06/29: pleasantly confused, moving all four extremities. 06/30. Stable. At baseline. Confused. Follows commands 81 year old female with small interhemispheric subdural hematoma within the falx patient remains confused but stable nonfocal examination Plan Plan Plan Remarks cont nonoperative management cont therapy serial neuro checks Labs, Micro, & Vital Signs Results Date Time Temp Pulse Resp B/P (MAP) Pulse Ox O2 Delivery O2 Flow Rate FiO2 06/30/17 12:00 96.9 72 17 125/69 (87) 97 06/30/17 08:00 97.0 69 16 123/64 (83) 99 06/30/17 04:00 97.5 78 17 186/79 (114) 91 06/30/17 00:00 97.5 55 17 147/66 (93) 92 06/29/17 20:00 97.5 78 18 134/64 (87) 91 06/29/17 19:05 93 21 Constitutional Vital Signs Date Time Temp Pulse Resp B/P (MAP) Pulse Ox O2 Delivery O2 Flow Rate FiO2 06/30/17 12:00 96.9 72 17 125/69 (87) 97 06/30/17 08:00 97.0 69 16 123/64 (83) 99 06/30/17 04:00 97.5 78 17 186/79 (114) 91 06/30/17 00:00 97.5 55 17 147/66 (93) 92 06/29/17 20:00 97.5 78 18 134/64 (87) 91 06/29/17 19:05 93 21 Physical Exam Ms. Alexis is alert, confused, oriented to self only. Feeding herself breakfast. Follows simple commands. Cranial nerve examination: pupils equal, round, and reactive to light. Facial motor function appears normal and symmetrical. Neck is soft and supple. Muscle testing reveals normal bulk and tone. Motor: moves all four extremities grossly symmetric, exam limited due to clinical condition. Deep tendon reflexes are 1+ in the upper and lower extremities. There is a bilateral plantar flexion response. Cerebellar examination is limited due to the patient condition, but no obvious deficits are noted. Medications Current Medications Current Medications Acetaminophen (Tylenol) 650 mg ONCE ONCE PO Last administered on 06/26/17 18 :17; Start 06/26/17 at 17:30; Stop 06/26/17 at 17:31; Status DC Ceftriaxone Sodium 2000 mg/ Sodium Chloride 100 ml @ 200 mls/hr ONCE STAT IV Last administered on 06/26/17 17:54; Start 06/26/17 at 17:17; Stop 06/26/17 at 17:46; Status DC Azithromycin 500 mg/Sodium Chloride 250 ml @ 250 mls/hr ONCE STAT IV Last administered on 06/26/17 18:17; Start 06/26/17 at 17:17; Stop 06/26/17 at 18 :16; Status DC Sodium Chloride 1,000 ml @ 1,000 mls/hr Q1H ONCE IV Last administered on 06/26 18:17; Start 06/26/17 at 17:17; Stop 06/26/17 at 18:16; Status DC Sodium Chloride 800 ml @ 1,000 mls/hr Q48M ONCE IV Last administered on 18:46; Start 06/26/17 at 17:17; Stop 06/26/17 at 18:04; Status DC Erythromycin (Ilotycin 0.5% Opth Oint) 1 applic ONCE ONCE EACH EYE Last administered on 06/26/17 18:46; Start 06/26/17 at 17:30; Stop 06/26/17 at 17 :31; Status DC Sodium Chloride (NS Flush) 2 ml UNSCH PRN IV FLUSH FLUSH AFTER USING IV ACCESS ; Start 06/26/17 at 19:30; Stop 06/30/17 at 15:24; Status DC Sodium Chloride (NS Flush) 2 ml BID IV FLUSH Last administered on 06/30/17 09 :00; Start 06/26/17 at 21:00; Stop 06/30/17 at 15:24; Status DC Acetaminophen (Tylenol) 650 mg Q4H PRN PO TEMP > 100.4; Start 06/26/17 at 19: 30; Stop 06/30/17 at 15:24; Status DC Ondansetron HCl (Zofran Inj) 4 mg Q6H PRN IVP NAUSEA OR VOMITING; Start at 19:30; Stop 06/30/17 at 15:24; Status DC Heparin Sodium (Porcine) (Heparin Inj) 5,000 units Q12HR SQ Last administered on 06/27/17 08:29; Start 06/26/17 at 21:00; Stop 06/27/17 at 17:13; Status DC Naloxone HCl (Narcan Inj) 0.4 mg UNSCH PRN IV PUSH SEE LABEL COMMENTS; Start 06/26/17 at 19:30; Stop 06/30/17 at 15:24; Status DC Senna/Docusate Sodium (More-Colace) 1 tab BID PO Last administered on 08:28; Start 06/26/17 at 21:00; Stop 06/27/17 at 11:58; Status DC Magnesium Hydroxide (Milk Of Magnesia Liq) 30 ml Q12H PRN PO Mild constipation ; Start 06/26/17 at 19:30; Stop 06/30/17 at 15:24; Status DC Sennosides (Senokot) 17.2 mg Q12H PRN PO Moderate constipation; Start at 19:30; Stop 06/27/17 at 11:58; Status DC Bisacodyl (Dulcolax Supp) 10 mg DAILY PRN RECTAL SEVERE CONSITIPATION; Start 06/26/17 at 19:30; Stop 06/27/17 at 11:58; Status DC Lactulose (Lactulose Liq) 30 ml DAILY PRN PO SEVERE CONSITIPATION; Start 06/26 at 19:30; Stop 06/27/17 at 11:58; Status DC Furosemide (Lasix) 20 mg DAILY PO Last administered on 06/30/17 11:10; Start 06/27/17 at 09:00; Stop 06/30/17 at 15:24; Status DC Lorazepam (Ativan) 0.25 mg DAILY PO Last administered on 06/30/17 11:10; Start 06/27/17 at 09:00; Stop 06/30/17 at 15:24; Status DC Memantine (Namenda) 10 mg BID PO Last administered on 06/30/17 11:09; Start 06/26/17 at 21:00; Stop 06/30/17 at 15:24; Status DC Donepezil HCl (Aricept) 10 mg HS PO Last administered on 06/29/17 22:08; Start 06/26/17 at 21:00; Stop 06/30/17 at 15:24; Status DC Niacin (Slo-Niacin) 250 mg DAILY PO Last administered on 06/30/17 11:09; Start 06/27/17 at 09:00; Stop 06/30/17 at 15:24; Status DC Paroxetine HCl (Paxil) 40 mg DAILY PO Last administered on 06/30/17 11:09; Start 06/27/17 at 09:00; Stop 06/30/17 at 15:24; Status DC Pravastatin Sodium (Pravachol) 40 mg DAILY PO Last administered on 06/30/17 11:08; Start 06/27/17 at 09:00; Stop 06/30/17 at 15:24; Status DC Albuterol/ Ipratropium (Duoneb Neb) 1 ampule Q4HR NEB PRN NEB SOB/Wheezing Last administered on 06/27/17 02:35; Start 06/26/17 at 19:30; Stop 06/30/17 at 15:24; Status DC Sodium Chloride 1,000 ml @ 60 mls/hr [id number] IV Last administered on 20:30; Start 06/26/17 at 20:30; Stop 06/27/17 at 11:57; Status DC Dextrose (D50w (Vial) Inj) 50 ml UNSCH PRN IV PUSH HYPOGLYCEMIA-SEE COMMENTS; Start 06/26/17 at 20:45; Stop 06/30/17 at 15:24; Status DC Glucagon (Glucagon Inj) 1 mg UNSCH PRN OTHER HYPOGLYCEMIA-SEE COMMENTS; Start 06/26/17 at 20:45; Stop 06/30/17 at 15:24; Status DC Insulin Aspart (NovoLOG SUPPLEMENTAL SCALE) 1 ACHS SLIDING SCALE SQ Last administered on 06/30/17 12:00; Start 06/26/17 at 21:00; Stop 06/30/17 at 15 :24; Status DC Azithromycin (Zithromax) 500 mg DAILY@1800 PO Last administered on 06/29/17 17:35; Start 06/27/17 at 18:00; Stop 06/30/17 at 15:24; Status DC Ceftriaxone Sodium 1000 mg/ Sodium Chloride 100 ml @ 200 mls/hr Q24H IV Last administered on 06/29/17 17:35; Start 06/27/17 at 17:00; Stop 06/30/17 at 15 :24; Status DC Budesonide/ Formoterol Fumarate (Symbicort 160-4.5 Mcg Inh) 2 puff Q12HR INH Last administered on 06/30/17 11:23; Start 06/27/17 at 21:00; Stop 06/30/17 at 15:24; Status DC Prednisone (Deltasone) 20 mg DAILY PO Last administered on 06/30/17 11:10; Start 06/27/17 at 12:15; Stop 06/30/17 at 15:24; Status DC Albuterol/ Ipratropium (Duoneb Neb) 1 ampule Q6HR WHILE AWAKE NEB NEB Last administered on 06/30/17 12:28; Start 06/27/17 at 14:00; Stop 06/30/17 at 15 :24; Status DC Guaifenesin (Mucinex Er) 600 mg BID PO Last administered on 06/30/17 11:08; Start 06/27/17 at 21:00; Stop 06/30/17 at 15:24; Status DC Miscellaneous (Pill Splitter) 1 ea UNSCH PRN OTHER SEE LABEL COMMENTS; Start 06/27/17 at 13:30; Stop 06/30/17 at 15:24; Status DC Potassium Chloride (KCl) 60 meq ONCE ONCE PO Last administered on 06/29/17 11:34; Start 06/29/17 at 10:45; Stop 06/29/17 at 10:46; Status DC Attending Statement Cleared per neurosurgical standpoint for discharrge Neuro:Continue neuro checks in a serial fashion. No, there is no indication for a neurosurgical intervention. Continue nonoperative treatment and follow-up by a neurologist hypercholesterolemia Resume meds Pulmonary: On room air, aggressive pulmonary toilette, nasotracheal suction, and breathing treatments with nebulizers Nutrition. Tolerating Oral diet Renal. Continue to monitor closely urine output, BUN and creatinine Endocrine. Continue to Monitor serial Acu checks and SSI as needed in detail ID continue IV ABX for pneumonia Protonix for stress ulcer prophylaxis Pacheco hose and SCD's for DVT prophylaxis The exam, history, and the medical decision-making described in the above note were completed with the assistance of the mid-level provider. I reviewed and agree with the findings presented. I attest that I had a [id number] encounter with the patient on the same day, and personally performed and documented my assessment and findings in the medical record. Jose Cohen MD Jun 30, 2017 17:38
== END 2017-06-30 15:23 | DRG 871 ==
LOC: NEPC 16:48 → NEDA 19:40 → N07A 21:00
PROVIDERS: ADMIT Hospitalist; ATTEND Hospitalist
DX: A41.9 Sepsis, unspecified organism (principal); J18.9 Pneumonia, unspecified organism; I62.00 Nontraumatic subdural hemorrhage, unspecified; N17.9 Acute kidney failure, unspecified; J44.0 Chronic obstructive pulmonary disease with (acute) lower respiratory infection; N39.0 Urinary tract infection, site not specified; J44.1 Chronic obstructive pulmonary disease with (acute) exacerbation; R65.20 Severe sepsis without septic shock; F03.90 Unspecified dementia, unspecified severity, without behavioral disturbance, psychotic disturbance, mood disturbance, and anxiety; E78.5 Hyperlipidemia, unspecified; E11.9 Type 2 diabetes mellitus without complications; R09.02 Hypoxemia; F41.9 Anxiety disorder, unspecified; F32.9 Major depressive disorder, single episode, unspecified; W19.XXXA Unspecified fall, initial encounter; Y92.099 Unspecified place in other non-institutional residence as the place of occurrence of the external cause; Y95 Nosocomial condition; Z79.84 Long term (current) use of oral hypoglycemic drugs
CPT/HCPCS: 70450; 71010; 76937; 80048; 80053; 81001; 82948; 83605; 85007; 85025; 85027; 87040; 87086; 94640; 94664; 96365; 96368; J0456; J0696; J1644; J1815; J7030; J7050; J7512